=== PATIENT | male | born 1945 | race Caucasian/White ===

== ENCOUNTER 2016-11-18 11:43 | Inpatient (IN) | payer MEDICARE, OTHER ==
[~2016-11-18] VITALS: Ht 185.4 cm; Wt 88.5 kg
[~2016-11-18 11:43] MED LIST: ASPI81TA27 PO; ATOR20TA PO; CAR3125T PO; CLOP75TA41 PO; Doxycycline Monohydrate PO; ENA2.5T PO; FURO40TA PO; PANT40TA2 PO; POT10T PO
[2016-11-18] MEDS ORDERED: SODIUM CHLORIDE 0.9% 1,000 ML IV ONE (11:53)
[2016-11-18] MEDS ORDERED: IPRATROPIUM BROM 0.5 MG/2.5ML INH SOL NEB ONE (12:00)
[2016-11-18] MEDS ORDERED: ALBUTEROL SULF 2.5 MG/0.5ML(0.5%) NEB SOLN NEB ONE (12:00)
[2016-11-18] MEDS ORDERED: methylPREDNISolone SOD SUCC 125 MG/2 ML VL IV ONE (12:00)
[2016-11-18 12:49] LABS: Basophils # (auto) 0 uL; Basophils % (auto) 0.3 % (0.0-2.0); Eosinophils # (auto) 0 uL; Eosinophils % (auto) 0.3 % (0.0-7.0); Hematocrit 38.7 % (41.0-53.0); Lymphocytes # (auto) 1.2 uL; Lymphocytes % (auto) 13.1 % (10.0-50.0); Mean Corpuscular Hemoglobin 27.1 pg (28.0-32.0); Mean Corpuscular Volume 87.3 fL (80.0-100.0); Mean Platelet Volume 7.6 fL (7.4-10.4); Monocytes # (auto) 0.7 uL; Monocytes % (auto) 8.2 % (0.0-12.0); Neutrophils % (auto) 78.1 % (37.0-80.0); Platelet Count (auto) 381 10^3/uL (140-450); Red Cell Distribution Width 17.4 % (11.6-16.0); White Blood Cell 8.9 10^3/uL (4.4-10.8)
[2016-11-18 13:09] LABS: INR 1.44 (0.9-1.15); Prothrombin Time 14.8 sec (9.37-12.3)
[2016-11-18 13:13] LABS: Albumin 3.1 g/dL (3.4-5.0); BUN/Creatinine Ratio 25.4; Calcium 8.6 mg/dL (8.5-10.1); Magnesium 2.3 mg/dL (1.6-2.6); Potassium 4.7 mmol/L (3.5-5.1); Total Protein 6.7 g/dL (6.4-8.2)
[2016-11-18] MEDS ORDERED: ASPirin 81 mg TAB PO ONE (13:45)
[2016-11-18] MEDS ORDERED: ENOXAPARIN SOD 100 MG/1 ML SYRINGE SC ONE (13:45)
[2016-11-18 13:56] LABS: B-Type Natriuretic Peptide 4252.61 pg/mL (0-100); Temperature: 22.3 C (20.0-25.0)
[2016-11-18] MEDS ORDERED: FUROSEMIDE 100 MG/10ML VIAL IV ONE (14:30)
[2016-11-18] MEDS ORDERED: CLOPIDOGREL BISULFATE 75 MG TAB PO ONE (14:30)
[2016-11-18] MEDS ORDERED: CLOPIDOGREL 300 MG TAB PO ONE (14:45)
[2016-11-18] MEDS ORDERED: FUROSEMIDE INJECTION 10 ML ONE (16:41)
[2016-11-18] MEDS ORDERED: ACETAMINOPHEN 325 MG TAB PO PRN (17:45)
[2016-11-18] MEDS ORDERED: NITROGLYCERIN 0.4 MG SL TAB SL PRN ×2 (17:45)
[2016-11-18] MEDS ORDERED: MORPHINE SULF INJ 2 MG/ML SYRINGE 1ML IV PRN ×2 (17:45)
[2016-11-18] MEDS ORDERED: LORazepam 0.5 MG TAB PO PRN (17:45)
[2016-11-18] MEDS ORDERED: cefTRIAXone 1GM/50ML D5W 50 ML IV ONE (17:45)
[2016-11-18] MEDS ORDERED: ALUM & MAG HYDROX-SIMETH LIQ(MAALOX) 30 ML PO PRN (17:45)
[2016-11-18] MEDS ORDERED: ONDANSETRON HCL 4 MG/2 ML VIAL IV PRN (17:45)
[2016-11-18] MEDS ORDERED: ZOLPIDEM TARTRATE 5 MG TAB PO PRN (17:45)
[2016-11-18] MEDS: methylPREDNISolone SOD SUCC 125 MG/2 ML VL IV SCH (18:00)
[2016-11-18] MEDS: FUROSEMIDE 40 MG/4 ML VIAL IV SCH (18:00)
[2016-11-18] MEDS: IPRATROPIUM BROM 0.5 MG/2.5ML INH SOL NEB SCH (18:50)
[2016-11-18] MEDS: ALBUTEROL SULF 2.5 MG/0.5ML(0.5%) NEB SOLN NEB SCH (18:51)
[2016-11-18 21:50] VITALS: BP 115/79
[2016-11-18] MEDS ORDERED: POTASSIUM CHL 10 Meq TABLET PO SCH (22:00)
[2016-11-18] MEDS ORDERED: CARVEDILOL 3.125 MG TAB PO SCH (22:00)
[2016-11-18] MEDS ORDERED: ENALAPRIL MALEATE 2.5 MG TAB PO SCH (22:00)
[2016-11-18] MEDS ORDERED: ATORVASTATIN 20 MG TAB PO SCH (22:00)
[2016-11-18] MEDS: SODIUM CHLOR 0.9% PF (SALINE LOCK) 10ML VIAL IV SCH (22:03)
[2016-11-18 23:49] LABS: Urine Bilirubin Negative (Negative); Urine Blood Negative /uL (Negative); Urine Color Colorless (Yellow); Urine Glucose Normal (Normal); Urine Ketone Negative (Negative); Urine Nitrite Negative (Negative); Urine RBC <1 /hpf (0 - 3); Urine Urobilinogen Normal (Negative)
[2016-11-19] MEDS: methylPREDNISolone SOD SUCC 125 MG/2 ML VL IV SCH ×2 (00:18→06:18)
[2016-11-19] MEDS: ALBUTEROL SULF 2.5 MG/0.5ML(0.5%) NEB SOLN NEB SCH ×2 (00:19→06:21)
[2016-11-19] MEDS: IPRATROPIUM BROM 0.5 MG/2.5ML INH SOL NEB SCH ×2 (00:19→06:21)
[2016-11-19] MEDS: FUROSEMIDE 40 MG/4 ML VIAL IV SCH (06:18)
[2016-11-19] MEDS: SODIUM CHLOR 0.9% PF (SALINE LOCK) 10ML VIAL IV SCH (06:18)
[2016-11-19 06:38] LABS: Basophils # (auto) 0.1 uL; Basophils % (auto) 1.1 % (0.0-2.0); Eosinophils # (auto) 0 uL; Hematocrit 40.4 % (41.0-53.0); Hemoglobin 13.2 g/dL (13.5-17.5); Lymphocytes # (auto) 0.5 uL; Mean Corpuscular Hgb Conc. 32.7 g/dL (32.0-36.0); Mean Corpuscular Volume 85.6 fL (80.0-100.0); Mean Platelet Volume 7.4 fL (7.4-10.4); Monocytes # (auto) 0.1 uL; Monocytes % (auto) 1.6 % (0.0-12.0); Neutrophils # (auto) 5.7 uL; Neutrophils % (auto) 89.3 % (37.0-80.0); Platelet Count (auto) 375 10^3/uL (140-450); Red Cell Distribution Width 15.8 % (11.6-16.0); White Blood Cell 6.4 10^3/uL (4.4-10.8)
[2016-11-19 06:57] LABS: Albumin 3.2 g/dL (3.4-5.0); BUN/Creatinine Ratio 27.5; Bilirubin, Total 1.7 mg/dL (0.2-1.0); Calcium 8.8 mg/dL (8.5-10.1); Magnesium 2.1 mg/dL (1.6-2.6); Potassium 3.9 mmol/L (3.5-5.1); Total Protein 6.3 g/dL (6.4-8.2)
[2016-11-19 07:45] VITALS: BP 129/43
[2016-11-19] MEDS ORDERED: IPRATROPIUM BROM 0.5 MG/2.5ML INH SOL NEB ONE (08:00)
[2016-11-19] MEDS ORDERED: FUROSEMIDE 20 MG/2 ML VIAL IV ONE (08:00)
[2016-11-19] MEDS ORDERED: ALBUTEROL SULF 2.5 MG/0.5ML(0.5%) NEB SOLN NEB ONE (08:00)
[2016-11-19 08:51] LABS: B-Type Natriuretic Peptide 4208.66 pg/mL (0-100); Temperature: 21.6 C (20.0-25.0)
[2016-11-19] MEDS ORDERED: cefTRIAXone 1GM/50ML D5W 50 ML IV SCH (09:00)
[2016-11-19] MEDS ORDERED: DOCUSATE SOD 100 MG CAP PO SCH (10:00)
[2016-11-19] MEDS ORDERED: ASPirin 81 mg TAB PO SCH (10:00)
[2016-11-19] MEDS ORDERED: CLOPIDOGREL BISULFATE 75 MG TAB PO SCH (10:00)
[2016-11-19] MEDS ORDERED: ENOXAPARIN SOD 100 MG/1 ML SYRINGE SC SCH ×2 (13:40→14:00)
[2016-11-19] MEDS ORDERED: methylPREDNISolone SOD SUCC 125 MG/2 ML VL IV SCH (22:00)
== END 2016-11-19 09:26 | disposition left against medical advice (07) | DRG 280 ==
LOC: EDUNIT# 11:43 → ER 11:48 → EDSEX 11:48 → TELE 11:49
PROVIDERS: ADMIT Internal Medicine; ATTEND Internal Medicine
DX: I21.4 Non-ST elevation (NSTEMI) myocardial infarction (principal); I50.43 Acute on chronic combined systolic (congestive) and diastolic (congestive) heart failure; D68.9 Coagulation defect, unspecified; E44.0 Moderate protein-calorie malnutrition; I13.0 Hypertensive heart and chronic kidney disease with heart failure and stage 1 through stage 4 chronic kidney disease, or unspecified chronic kidney disease; J44.0 Chronic obstructive pulmonary disease with (acute) lower respiratory infection; J44.1 Chronic obstructive pulmonary disease with (acute) exacerbation; J45.901 Unspecified asthma with (acute) exacerbation; R65.10 Systemic inflammatory response syndrome (SIRS) of non-infectious origin without acute organ dysfunction; J20.9 Acute bronchitis, unspecified; D63.8 Anemia in other chronic diseases classified elsewhere; N18.3 Chronic kidney disease, stage 3 (moderate); E78.5 Hyperlipidemia, unspecified; F17.210 Nicotine dependence, cigarettes, uncomplicated; I25.10 Atherosclerotic heart disease of native coronary artery without angina pectoris; I25.2 Old myocardial infarction; Z98.61 Coronary angioplasty status; Z79.82 Long term (current) use of aspirin; Z79.899 Other long term (current) drug therapy; Z88.8 Allergy status to other drugs, medicaments and biological substances; Z80.9 Family history of malignant neoplasm, unspecified; Z68.25 Body mass index [BMI] 25.0-25.9, adult
CPT/HCPCS: 36415; 36600; 51702; 71010; 80053; 80061; 81001; 82805; 83735; 83880; 84484; 85025; 85610; 85730; 87040; 87086; 93005; 94640; 94761; 96361; 96365; 96372; 96375; 96376

== ENCOUNTER 2016-11-25 23:07 | Inpatient (IN) | payer MEDICARE, OTHER ==
[~2016-11-25] VITALS: Ht 185.4 cm; Wt 80.2 kg
[2016-11-25 23:54] LABS: Basophils # (auto) 0.2 uL; Basophils % (auto) 1.6 % (0.0-2.0); DEFINITIVE VIEW TRANSMISSION; Eosinophils # (auto) 0.1 uL; Eosinophils % (auto) 0.4 % (0.0-7.0); Hematocrit 41.3 % (41.0-53.0); Hemoglobin 12.7 g/dL (13.5-17.5); Lymphocytes # (auto) 1.2 uL; Lymphocytes % (auto) 9.1 % (10.0-50.0); Mean Corpuscular Hemoglobin 27.1 pg (28.0-32.0); Mean Corpuscular Hgb Conc. 30.8 g/dL (32.0-36.0); Mean Platelet Volume 7.7 fL (7.4-10.4); Monocytes # (auto) 0.7 uL; Monocytes % (auto) 5.8 % (0.0-12.0); Neutrophils # (auto) 10.7 uL; Neutrophils % (auto) 83.1 % (37.0-80.0); Platelet Count (auto) 354 10^3/uL (140-450); Red Cell Distribution Width 15.9 % (11.6-16.0); SUSPECT VIEW TRANSMISSION; White Blood Cell 12.9 10^3/uL (4.4-10.8)
[2016-11-26 00:14] LABS: BUN/Creatinine Ratio 26.5; Calcium 8.2 mg/dL (8.5-10.1)
[2016-11-26] MEDS ORDERED: PROMETHAZINE HCL 25 MG/ML 1ML IV ONE (00:15)
[2016-11-26] MEDS ORDERED: HYDROmorphone HCL 2 MG/ML VL IV ONE (00:15)
[2016-11-26 00:16] LABS: Bilirubin, Total 1.8 mg/dL (0.2-1.0); Total Protein 6.2 g/dL (6.4-8.2)
[2016-11-26 00:18] LABS: Partial Thromboplastin Time 26.9 sec (22.64-33.71)
[2016-11-26 00:26] LABS: B-Type Natriuretic Peptide > 5000.00 pg/mL (0-100); INR 1.43 (0.9-1.15); Prothrombin Time 14.7 sec (9.37-12.3)
[2016-11-26] MEDS ORDERED: cefTRIAXone 1GM/50ML D5W 50 ML IV ONE (05:30)
[2016-11-26] MEDS ORDERED: VANCOMYCIN 1GM/250ML D5W 250 ML IV ONE (05:30)
[2016-11-26] MEDS ORDERED: NITROGLYCERIN 0.4 MG SL TAB SL PRN (09:15)
[2016-11-26] MEDS ORDERED: FUROSEMIDE 40 MG/4 ML VIAL IV ONE ×2 (09:15→18:30)
[2016-11-26] MEDS ORDERED: VANCOMYCIN PER PHARMACY 0 MG IV SCH (09:15)
[2016-11-26] MEDS ORDERED: ACETAMINOPHEN 325 MG TAB PO PRN (09:15)
[2016-11-26] MEDS: CLOPIDOGREL BISULFATE 75 MG TAB PO SCH (09:54)
[2016-11-26] MEDS: MULTIPLE VITAMIN TAB PO SCH (09:54)
[2016-11-26] MEDS: CARVEDILOL 3.125 MG TAB PO SCH ×2 (09:54→22:00)
[2016-11-26] MEDS: PANTOPRAZOLE 40 MG TAB PO SCH (09:54)
[2016-11-26] MEDS: ENALAPRIL MALEATE 2.5 MG TAB PO SCH (09:54)
[2016-11-26] MEDS: POTASSIUM CHL 10 Meq TABLET PO SCH ×2 (09:54→22:00)
[2016-11-26] MEDS: ENOXAPARIN SOD 40 MG/0.4 ML SYRINGE SC SCH (09:54)
[2016-11-26] MEDS: ASPirin-EC 81 mg tab PO SCH (09:54)
[2016-11-26] MEDS ORDERED: FAMOTIDINE 20 MG TAB PO SCH (10:00)
[2016-11-26] MEDS: MORPHINE SULF INJ 2 MG/ML SYRINGE 1ML IV PRN ×2 (10:01→23:59)
[2016-11-26] MEDS: SODIUM CHLOR 0.9% PF (SALINE LOCK) 10ML VIAL IV SCH ×2 (12:13→22:00)
[2016-11-26 12:36] LABS: Urine Bilirubin Negative (Negative); Urine Blood Negative /uL (Negative); Urine Color Yellow (Yellow); Urine Glucose Normal (Normal); Urine Ketone Negative (Negative); Urine Nitrite Negative (Negative); Urine RBC 2 /hpf (0 - 3); Urine pH 5.5 (5.0-8.0)
[2016-11-26] MEDS: VANCOMYCIN 1GM/250ML D5W 250 ML IV SCH (17:27)
[2016-11-26] MEDS: FUROSEMIDE 40 MG/4 ML VIAL IV SCH (17:54)
[2016-11-26] MEDS ORDERED: VANCOMYCIN 1GM/250ML D5W 250 ML IV SCH (18:00)
[2016-11-26] MEDS: ATORVASTATIN 20 MG TAB PO SCH (22:00)
[2016-11-26] MEDS: ONDANSETRON HCL 4 MG/2 ML VIAL IV PRN (23:59)
[2016-11-27] MEDS: MORPHINE SULF INJ 2 MG/ML SYRINGE 1ML IV PRN ×4 (01:13→17:46)
[2016-11-27] MEDS: HYDROcodone-ACET 5/325MG TAB PO PRN ×2 (03:12→23:37)
[2016-11-27] MEDS: VANCOMYCIN 1GM/250ML D5W 250 ML IV SCH (05:57)
[2016-11-27 06:00] LABS: Basophils # (auto) 0.1 uL; Basophils % (auto) 0.6 % (0.0-2.0); Eosinophils # (auto) 0.1 uL; Eosinophils % (auto) 0.9 % (0.0-7.0); Hematocrit 39.5 % (41.0-53.0); Hemoglobin 12.5 g/dL (13.5-17.5); Lymphocytes # (auto) 1.1 uL; Lymphocytes % (auto) 8.9 % (10.0-50.0); Mean Corpuscular Hemoglobin 27.4 pg (28.0-32.0); Mean Corpuscular Hgb Conc. 31.5 g/dL (32.0-36.0); Mean Corpuscular Volume 86.9 fL (80.0-100.0); Mean Platelet Volume 7.7 fL (7.4-10.4); Monocytes # (auto) 1.4 uL; Monocytes % (auto) 11.7 % (0.0-12.0); Neutrophils # (auto) 9.2 uL; Neutrophils % (auto) 77.9 % (37.0-80.0); Platelet Count (auto) 328 10^3/uL (140-450); Red Cell Distribution Width 16.7 % (11.6-16.0); SUSPECT VIEW TRANSMISSION; White Blood Cell 11.9 10^3/uL (4.4-10.8)
[2016-11-27] MEDS: FUROSEMIDE 40 MG/4 ML VIAL IV SCH (06:00)
[2016-11-27] MEDS: SODIUM CHLOR 0.9% PF (SALINE LOCK) 10ML VIAL IV SCH ×3 (06:29→22:13)
[2016-11-27 06:40] LABS: Potassium 4.3 mmol/L (3.5-5.1)
[2016-11-27 06:51] LABS: Albumin 2.5 g/dL (3.4-5.0); BUN/Creatinine Ratio 23.7; Calcium 8.1 mg/dL (8.5-10.1)
[2016-11-27 07:03] LABS: Total Protein 5.5 g/dL (6.4-8.2)
[2016-11-27] MEDS: cefTRIAXone 1GM/50ML D5W 50 ML IV SCH (09:34)
[2016-11-27] MEDS: CARVEDILOL 3.125 MG TAB PO SCH ×2 (10:00→22:14)
[2016-11-27] MEDS: ENALAPRIL MALEATE 2.5 MG TAB PO SCH (10:00)
[2016-11-27] MEDS: ASPirin-EC 81 mg tab PO SCH (10:43)
[2016-11-27] MEDS: MULTIPLE VITAMIN TAB PO SCH (10:44)
[2016-11-27] MEDS: POTASSIUM CHL 10 Meq TABLET PO SCH ×2 (10:44→22:13)
[2016-11-27] MEDS: CLOPIDOGREL BISULFATE 75 MG TAB PO SCH (10:45)
[2016-11-27] MEDS: ENOXAPARIN SOD 40 MG/0.4 ML SYRINGE SC SCH (10:45)
[2016-11-27] MEDS: PANTOPRAZOLE 40 MG TAB PO SCH (10:45)
[2016-11-27] MEDS: ONDANSETRON HCL 4 MG/2 ML VIAL IV PRN (11:15)
[2016-11-27] MEDS ORDERED: LORazepam 2MG/ML-1ML VIAL ONE (15:11)
[2016-11-27] MEDS: FUROSEMIDE 40 MG TAB PO SCH (17:50)
[2016-11-27] MEDS: ATORVASTATIN 20 MG TAB PO SCH (22:13)
[2016-11-27 23:15] VITALS: BP 94/65
[2016-11-27] MEDS: DOCUSATE SOD 100 MG CAP PO PRN (23:36)
[2016-11-28] VITALS (89 sets, daily range): BP systolic 77–157; BP diastolic 34–102
[2016-11-28] MEDS ORDERED: NOREPINEPHRINE BITARTRATE 250 ML IV ONE (00:20)
[2016-11-28] MEDS ORDERED: NOREPINEPHRINE BITARTRATE 2 ML IV ONE (00:21)
[2016-11-28] MEDS: NOREPINEPHRINE BITARTRATE 16 MG in D5W 5% 250 ML IV SCH (01:20)
[2016-11-28] MEDS ORDERED: NITR0.4S29 SL (04:35)
[2016-11-28] MEDS ORDERED: FURO40TA4 PO (04:35)
[2016-11-28] MEDS ORDERED: POTA10TA34 PO (04:35)
[2016-11-28] MEDS ORDERED: TAMS0.4C36 PO (04:35)
[2016-11-28 05:07] LABS: Basophils # (auto) 0 uL; Basophils % (auto) 0.3 % (0.0-2.0); Eosinophils # (auto) 0.1 uL; Eosinophils % (auto) 1.1 % (0.0-7.0); Hematocrit 37.2 % (41.0-53.0); Hemoglobin 11.7 g/dL (13.5-17.5); Lymphocytes # (auto) 1.1 uL; Lymphocytes % (auto) 11.6 % (10.0-50.0); Mean Corpuscular Hemoglobin 27.1 pg (28.0-32.0); Mean Corpuscular Hgb Conc. 31.4 g/dL (32.0-36.0); Mean Corpuscular Volume 86.6 fL (80.0-100.0); Mean Platelet Volume 7.3 fL (7.4-10.4); Monocytes # (auto) 0.9 uL; Monocytes % (auto) 9.7 % (0.0-12.0); Neutrophils # (auto) 7.1 uL; Neutrophils % (auto) 77.3 % (37.0-80.0); Platelet Count (auto) 321 10^3/uL (140-450); Red Cell Distribution Width 17.9 % (11.6-16.0); White Blood Cell 9.2 10^3/uL (4.4-10.8)
[2016-11-28 05:37] LABS: BUN/Creatinine Ratio 23.1; Calcium 7.8 mg/dL (8.5-10.1); Magnesium 1.8 mg/dL (1.6-2.6); Potassium 4.3 mmol/L (3.5-5.1)
[2016-11-28] MEDS ORDERED: VANCOMYCIN 1GM/250ML D5W 250 ML IV SCH (06:00)
[2016-11-28] MEDS: FUROSEMIDE 40 MG TAB PO SCH ×2 (06:01→17:14)
[2016-11-28] MEDS: SODIUM CHLOR 0.9% PF (SALINE LOCK) 10ML VIAL IV SCH ×3 (06:01→22:14)
[2016-11-28] MEDS: cefTRIAXone 1GM/50ML D5W 50 ML IV SCH (09:00)
[2016-11-28] MEDS: ENOXAPARIN SOD 80 MG/0.8ML SYRINGE SC SCH ×2 (09:44→22:14)
[2016-11-28] MEDS: CLOPIDOGREL BISULFATE 75 MG TAB PO SCH (09:44)
[2016-11-28] MEDS: MULTIPLE VITAMIN TAB PO SCH (09:44)
[2016-11-28] MEDS: POTASSIUM CHL 10 Meq TABLET PO SCH ×2 (09:45→22:14)
[2016-11-28] MEDS: ENALAPRIL MALEATE 2.5 MG TAB PO SCH (09:45)
[2016-11-28] MEDS: ASPirin-EC 81 mg tab PO SCH (09:45)
[2016-11-28] MEDS: CARVEDILOL 3.125 MG TAB PO SCH ×3 (09:45→23:15)
[2016-11-28] MEDS: PANTOPRAZOLE 40 MG TAB PO SCH (09:45)
[2016-11-28] MEDS ORDERED: ENOXAPARIN SOD 40 MG/0.4 ML SYRINGE SC SCH (10:00)
[2016-11-28 11:01] LABS: Urine Bilirubin Negative (Negative); Urine Color Colorless (Yellow); Urine Glucose Normal (Normal); Urine Ketone Negative (Negative); Urine Nitrite Negative (Negative); Urine RBC 17 /hpf (0 - 3); Urine Urobilinogen Normal (Negative)
[2016-11-28 11:02] LABS: Urine Blood 1+ /uL (Negative)
[2016-11-28] MEDS: HYDROcodone-ACET 5/325MG TAB PO PRN (20:18)
[2016-11-28] MEDS: TEMAZEPAM 15 MG CAP PO PRN (22:14)
[2016-11-28] MEDS: ATORVASTATIN 20 MG TAB PO SCH (22:15)
[2016-11-29] VITALS (16 sets, daily range): BP systolic 96–168; BP diastolic 38–96
[2016-11-29] MEDS: NOREPINEPHRINE BITARTRATE 16 MG in D5W 5% 250 ML IV SCH (00:30)
[2016-11-29 03:48] LABS: Basophils # (auto) 0 uL; Basophils % (auto) 0.6 % (0.0-2.0); Eosinophils # (auto) 0.1 uL; Eosinophils % (auto) 1.4 % (0.0-7.0); Hematocrit 38.3 % (41.0-53.0); Hemoglobin 12.1 g/dL (13.5-17.5); Lymphocytes # (auto) 1.2 uL; Lymphocytes % (auto) 13.3 % (10.0-50.0); Mean Corpuscular Hemoglobin 27.2 pg (28.0-32.0); Mean Corpuscular Hgb Conc. 31.5 g/dL (32.0-36.0); Mean Corpuscular Volume 86.3 fL (80.0-100.0); Mean Platelet Volume 7.4 fL (7.4-10.4); Neutrophils # (auto) 6.4 uL; Neutrophils % (auto) 73.7 % (37.0-80.0); Platelet Count (auto) 294 10^3/uL (140-450); Red Cell Distribution Width 17.6 % (11.6-16.0); White Blood Cell 8.7 10^3/uL (4.4-10.8)
[2016-11-29 04:15] LABS: BUN/Creatinine Ratio 24.3; Calcium 8.4 mg/dL (8.5-10.1); Magnesium 1.8 mg/dL (1.6-2.6); Potassium 3.9 mmol/L (3.5-5.1); Uric Acid 9.7 mg/dL (3.5-7.2)
[2016-11-29] MEDS: FUROSEMIDE 40 MG TAB PO SCH ×2 (05:53→17:50)
[2016-11-29] MEDS: HYDROcodone-ACET 5/325MG TAB PO PRN ×4 (05:54→18:47)
[2016-11-29] MEDS: SODIUM CHLOR 0.9% PF (SALINE LOCK) 10ML VIAL IV SCH ×3 (06:00→21:23)
[2016-11-29] MEDS: cefTRIAXone 1GM/50ML D5W 50 ML IV SCH (09:26)
[2016-11-29 09:45] LABS: Partial Thromboplastin Time 31.5 sec (22.64-33.71)
[2016-11-29] MEDS: ENALAPRIL MALEATE 2.5 MG TAB PO SCH (10:00)
[2016-11-29 10:04] LABS: INR 1.17 (0.9-1.15)
[2016-11-29] MEDS: ENOXAPARIN SOD 80 MG/0.8ML SYRINGE SC SCH (10:07)
[2016-11-29] MEDS: MULTIPLE VITAMIN TAB PO SCH (10:07)
[2016-11-29] MEDS: ASPirin-EC 81 mg tab PO SCH (10:07)
[2016-11-29] MEDS: PANTOPRAZOLE 40 MG TAB PO SCH (10:07)
[2016-11-29] MEDS: CLOPIDOGREL BISULFATE 75 MG TAB PO SCH (10:07)
[2016-11-29] MEDS: POTASSIUM CHL 10 Meq TABLET PO SCH ×2 (10:07→21:24)
[2016-11-29] MEDS ORDERED: MAGNESIUM SULFATE 1GM/100ML 100 ML IV ONE (11:30)
[2016-11-29] MEDS: MORPHINE SULF INJ 2 MG/ML SYRINGE 1ML IV PRN (21:23)
[2016-11-29] MEDS: CARVEDILOL 3.125 MG TAB PO SCH (21:24)
[2016-11-29] MEDS: ATORVASTATIN 20 MG TAB PO SCH (21:24)
[2016-11-30 05:00] VITALS: BP 98/54
[2016-11-30 06:01] LABS: Potassium 3.9 mmol/L (3.5-5.1)
[2016-11-30 06:06] LABS: Calcium 8.2 mg/dL (8.5-10.1); Magnesium 1.9 mg/dL (1.6-2.6)
[2016-11-30] MEDS: FUROSEMIDE 40 MG TAB PO SCH ×2 (06:20→17:18)
[2016-11-30] MEDS: SODIUM CHLOR 0.9% PF (SALINE LOCK) 10ML VIAL IV SCH ×3 (06:20→21:57)
[2016-11-30] MEDS: cefTRIAXone 1GM/50ML D5W 50 ML IV SCH (08:51)
[2016-11-30 09:00] VITALS: BP 103/65
[2016-11-30] MEDS: HYDROcodone-ACET 5/325MG TAB PO PRN ×2 (09:19→18:37)
[2016-11-30] MEDS: PANTOPRAZOLE 40 MG TAB PO SCH (10:55)
[2016-11-30] MEDS: ENALAPRIL MALEATE 2.5 MG TAB PO SCH (10:55)
[2016-11-30] MEDS: MULTIPLE VITAMIN TAB PO SCH (10:56)
[2016-11-30] MEDS: CARVEDILOL 3.125 MG TAB PO SCH ×2 (10:57→21:57)
[2016-11-30] MEDS: POTASSIUM CHL 10 Meq TABLET PO SCH ×2 (10:57→21:56)
[2016-11-30 13:05] VITALS: BP 95/68
[2016-11-30 17:00] VITALS: BP 96/71
[2016-11-30 20:32] VITALS: BP 94/57
[2016-11-30] MEDS: ATORVASTATIN 20 MG TAB PO SCH (21:56)
[2016-11-30] MEDS: TEMAZEPAM 15 MG CAP PO PRN (23:10)
[2016-12-01] MEDS: HYDROcodone-ACET 5/325MG TAB PO PRN (03:10)
[2016-12-01 04:35] VITALS: BP 127/67
[2016-12-01] MEDS: SODIUM CHLOR 0.9% PF (SALINE LOCK) 10ML VIAL IV SCH ×3 (05:28→21:30)
[2016-12-01] MEDS: FUROSEMIDE 40 MG TAB PO SCH ×2 (05:28→17:41)
[2016-12-01 05:48] LABS: Basophils # (auto) 0 uL; Basophils % (auto) 0.4 % (0.0-2.0); DEFINITIVE VIEW TRANSMISSION; Eosinophils # (auto) 0.1 uL; Eosinophils % (auto) 1.8 % (0.0-7.0); Hemoglobin 12.5 g/dL (13.5-17.5); Lymphocytes % (auto) 13.4 % (10.0-50.0); Mean Corpuscular Hemoglobin 26.9 pg (28.0-32.0); Mean Corpuscular Hgb Conc. 31.2 g/dL (32.0-36.0); Mean Corpuscular Volume 86.1 fL (80.0-100.0); Mean Platelet Volume 7.4 fL (7.4-10.4); Monocytes % (auto) 12.2 % (0.0-12.0); Neutrophils # (auto) 5.6 uL; Neutrophils % (auto) 72.2 % (37.0-80.0); Platelet Count (auto) 253 10^3/uL (140-450); Red Cell Distribution Width 17.3 % (11.6-16.0); White Blood Cell 7.8 10^3/uL (4.4-10.8)
[2016-12-01 05:58] LABS: INR 1.11 (0.9-1.15); Prothrombin Time 11.4 sec (9.37-12.3)
[2016-12-01 06:01] LABS: BUN/Creatinine Ratio 24.8; Calcium 8.5 mg/dL (8.5-10.1); Potassium 3.8 mmol/L (3.5-5.1)
[2016-12-01] MEDS: cefTRIAXone 1GM/50ML D5W 50 ML IV SCH (08:57)
[2016-12-01 09:11] VITALS: BP 101/58
[2016-12-01] MEDS: POTASSIUM CHL 10 Meq TABLET PO SCH ×2 (09:34→21:30)
[2016-12-01] MEDS: CARVEDILOL 3.125 MG TAB PO SCH ×2 (09:34→22:00)
[2016-12-01] MEDS: ENALAPRIL MALEATE 2.5 MG TAB PO SCH (09:34)
[2016-12-01] MEDS: MULTIPLE VITAMIN TAB PO SCH (09:34)
[2016-12-01] MEDS: PANTOPRAZOLE 40 MG TAB PO SCH (09:35)
[2016-12-01] MEDS: DOCUSATE SOD 100 MG CAP PO PRN (09:35)
[2016-12-01 13:00] VITALS: BP 110/57
[2016-12-01 17:00] VITALS: BP 86/57
[2016-12-01] MEDS: TEMAZEPAM 15 MG CAP PO PRN (21:30)
[2016-12-01] MEDS: ATORVASTATIN 20 MG TAB PO SCH (21:30)
[2016-12-01 22:00] VITALS: BP 88/56
[2016-12-01] MEDS: ACETYLCYSTEINE ORAL for CIN 20%(200MG/ML) 4ML PO SCH (22:48)
[2016-12-02] MEDS: HYDROcodone-ACET 5/325MG TAB PO PRN (03:58)
[2016-12-02 05:00] VITALS: BP 118/93
[2016-12-02] MEDS: SODIUM CHLOR 0.9% PF (SALINE LOCK) 10ML VIAL IV SCH ×3 (05:35→21:52)
[2016-12-02] MEDS: FUROSEMIDE 40 MG TAB PO SCH ×2 (05:36→17:43)
[2016-12-02 06:02] LABS: Basophils # (auto) 0.1 uL; Basophils % (auto) 0.6 % (0.0-2.0); Eosinophils # (auto) 0.2 uL; Eosinophils % (auto) 1.9 % (0.0-7.0); Lymphocytes # (auto) 1.8 uL; Lymphocytes % (auto) 18.7 % (10.0-50.0); Mean Corpuscular Hemoglobin 27.2 pg (28.0-32.0); Mean Corpuscular Hgb Conc. 31.8 g/dL (32.0-36.0); Mean Corpuscular Volume 85.7 fL (80.0-100.0); Mean Platelet Volume 7.5 fL (7.4-10.4); Monocytes # (auto) 1.1 uL; Monocytes % (auto) 11.9 % (0.0-12.0); Neutrophils # (auto) 6.4 uL; Neutrophils % (auto) 66.9 % (37.0-80.0); Platelet Count (auto) 278 10^3/uL (140-450); Red Cell Distribution Width 17.7 % (11.6-16.0); White Blood Cell 9.6 10^3/uL (4.4-10.8)
[2016-12-02 06:12] LABS: BUN/Creatinine Ratio 24.1; Calcium 8.2 mg/dL (8.5-10.1); INR 1.08 (0.9-1.15); Magnesium 2.3 mg/dL (1.6-2.6); Potassium 4.4 mmol/L (3.5-5.1); Prothrombin Time 11.1 sec (9.37-12.3)
[2016-12-02] MEDS ORDERED: IOHEXOL 350 MG/ML 100ML IJ ONE (07:23)
[2016-12-02] MEDS ORDERED: LIDOCAINE 2%HCL (LOCAL ANESTH.) INJ 20ML MDV ONE (07:23)
[2016-12-02 08:00] VITALS: BP 103/64
[2016-12-02] MEDS: ENALAPRIL MALEATE 2.5 MG TAB PO SCH (09:15)
[2016-12-02] MEDS: CARVEDILOL 3.125 MG TAB PO SCH ×2 (09:15→22:00)
[2016-12-02] MEDS: cefTRIAXone 1GM/50ML D5W 50 ML IV SCH (09:51)
[2016-12-02] MEDS: MULTIPLE VITAMIN TAB PO SCH (09:51)
[2016-12-02] MEDS: POTASSIUM CHL 10 Meq TABLET PO SCH ×2 (09:52→21:50)
[2016-12-02] MEDS: PANTOPRAZOLE 40 MG TAB PO SCH (09:52)
[2016-12-02] MEDS: ACETYLCYSTEINE ORAL for CIN 20%(200MG/ML) 4ML PO SCH ×2 (10:15→21:50)
[2016-12-02] MEDS ORDERED: VANCOMYCIN HCL 1000 MG VL ONE (10:58)
[2016-12-02] MEDS ORDERED: VANCOMYCIN 1GM/250ML D5W 250 ML IV ONE ×2 (10:58→11:00)
[2016-12-02] MEDS ORDERED: VANCOMYCIN HCL 1000 MG VL IR ONE (11:00)
[2016-12-02] MEDS ORDERED: fentaNYL CITRATE 100 MCG/2 ML VL ONE (11:13)
[2016-12-02] MEDS ORDERED: MIDAZOLAM HCL 1MG/1ML-2 ML VIAL ONE (11:13)
[2016-12-02] MEDS ORDERED: BACITRACIN INJ 50000 UNIT VIAL ONE (11:13)
[2016-12-02 14:40] VITALS: BP 109/73
[2016-12-02] MEDS: MORPHINE SULF INJ 2 MG/ML SYRINGE 1ML IV PRN ×2 (15:40→20:52)
[2016-12-02] MEDS: ONDANSETRON HCL 4 MG/2 ML VIAL IV PRN (15:40)
[2016-12-02] MEDS: DOXYCYCLINE 100 MG TAB/CAP PO SCH ×2 (15:41→21:50)
[2016-12-02 16:30] VITALS: BP 136/52
[2016-12-02] MEDS: ceFAZolin 1GM 2 GM in D5W 5% 100 ML IV SCH (16:55)
[2016-12-02] MEDS: ATORVASTATIN 20 MG TAB PO SCH (21:51)
[2016-12-02] MEDS ORDERED: VANCOMYCIN 1GM/250ML D5W 250 ML IV SCH (23:00)
[2016-12-02 23:14] VITALS: BP 90/60
[2016-12-02] MEDS ORDERED: ceFAZolin 1GM/50ML D5W 0 ML IV ONE (23:59)
[2016-12-03] MEDS ORDERED: ceFAZolin 1GM/50ML D5W 100 ML IV ONE (00:06)
[2016-12-03] MEDS: ceFAZolin 1GM 2 GM in D5W 5% 100 ML IV SCH (00:13)
[2016-12-03] MEDS: MORPHINE SULF INJ 2 MG/ML SYRINGE 1ML IV PRN ×2 (01:06→05:10)
[2016-12-03 05:06] VITALS: BP 84/59
[2016-12-03] MEDS: SODIUM CHLOR 0.9% PF (SALINE LOCK) 10ML VIAL IV SCH ×2 (05:49→14:17)
[2016-12-03 05:56] LABS: Basophils # (auto) 0.1 uL; Basophils % (auto) 0.6 % (0.0-2.0); DEFINITIVE VIEW TRANSMISSION; Eosinophils # (auto) 0.2 uL; Eosinophils % (auto) 2.3 % (0.0-7.0); Hematocrit 37.7 % (41.0-53.0); Hemoglobin 11.8 g/dL (13.5-17.5); Lymphocytes # (auto) 1.9 uL; Lymphocytes % (auto) 23.1 % (10.0-50.0); Mean Corpuscular Hemoglobin 26.8 pg (28.0-32.0); Mean Corpuscular Hgb Conc. 31.1 g/dL (32.0-36.0); Mean Corpuscular Volume 86.1 fL (80.0-100.0); Mean Platelet Volume 7.6 fL (7.4-10.4); Monocytes # (auto) 0.9 uL; Monocytes % (auto) 10.4 % (0.0-12.0); Neutrophils # (auto) 5.3 uL; Neutrophils % (auto) 63.6 % (37.0-80.0); Platelet Count (auto) 246 10^3/uL (140-450); Red Cell Distribution Width 17.7 % (11.6-16.0); White Blood Cell 8.4 10^3/uL (4.4-10.8)
[2016-12-03] MEDS: FUROSEMIDE 40 MG TAB PO SCH ×2 (05:58→17:31)
[2016-12-03 06:14] LABS: BUN/Creatinine Ratio 25.2; Calcium 8.1 mg/dL (8.5-10.1); Potassium 4.2 mmol/L (3.5-5.1)
[2016-12-03 09:00] VITALS: BP 99/56
[2016-12-03] MEDS: CARVEDILOL 3.125 MG TAB PO SCH (10:00)
[2016-12-03] MEDS: ENALAPRIL MALEATE 2.5 MG TAB PO SCH (10:00)
[2016-12-03] MEDS: DOXYCYCLINE 100 MG TAB/CAP PO SCH (10:09)
[2016-12-03] MEDS: POTASSIUM CHL 10 Meq TABLET PO SCH (10:09)
[2016-12-03] MEDS: MULTIPLE VITAMIN TAB PO SCH (10:09)
[2016-12-03] MEDS: PANTOPRAZOLE 40 MG TAB PO SCH (10:10)
[2016-12-03] MEDS: ACETYLCYSTEINE ORAL for CIN 20%(200MG/ML) 4ML PO SCH (10:11)
[2016-12-03] MEDS: HYDROcodone-ACET 5/325MG TAB PO PRN (10:24)
[2016-12-03 12:00] VITALS: BP 88/49
[2016-12-03] MEDS ORDERED: HYDROcodone-ACET 5/325MG TAB PO PRN (13:45)
[2016-12-03] MEDS ORDERED: TEMAZEPAM 15 MG CAP PO PRN (13:45)
[2016-12-03 16:00] VITALS: BP 87/54
== END 2016-12-03 18:20 | disposition left against medical advice (07) | DRG 853 ==
LOC: EDBD 23:07 → ER 23:11 → TELE 23:12 → DOU IN ICU 11-27 23:09 → ICU WEST 11-28 06:13 → TELE-WESTW 11-29 12:37
PROVIDERS: ADMIT Internal Medicine; ATTEND Internal Medicine
PROC: 0JH608Z Insertion of Defibrillator Generator into Chest Subcutaneous Tissue and Fascia, Open Approach (ICD-10-PCS; principal; 2016-12-02)
PROC: 0JH60PZ Insertion of Cardiac Rhythm Related Device into Chest Subcutaneous Tissue and Fascia, Open Approach (ICD-10-PCS; 2016-12-02)
PROC: 3E0102A Introduction of Anti-Infective Envelope into Subcutaneous Tissue, Open Approach (ICD-10-PCS; 2016-12-02)
PROC: B5171ZZ Fluoroscopy of Left Subclavian Vein using Low Osmolar Contrast (ICD-10-PCS; 2016-12-02)
DX: A41.9 Sepsis, unspecified organism (principal); I50.33 Acute on chronic diastolic (congestive) heart failure; N17.0 Acute kidney failure with tubular necrosis; I21.4 Non-ST elevation (NSTEMI) myocardial infarction; L03.116 Cellulitis of left lower limb; I13.0 Hypertensive heart and chronic kidney disease with heart failure and stage 1 through stage 4 chronic kidney disease, or unspecified chronic kidney disease; D68.9 Coagulation defect, unspecified; E44.0 Moderate protein-calorie malnutrition; L03.115 Cellulitis of right lower limb; J96.11 Chronic respiratory failure with hypoxia; R57.9 Shock, unspecified; R65.10 Systemic inflammatory response syndrome (SIRS) of non-infectious origin without acute organ dysfunction; N18.3 Chronic kidney disease, stage 3 (moderate); D63.8 Anemia in other chronic diseases classified elsewhere; I25.5 Ischemic cardiomyopathy; I73.9 Peripheral vascular disease, unspecified; J44.9 Chronic obstructive pulmonary disease, unspecified; F17.210 Nicotine dependence, cigarettes, uncomplicated; E78.5 Hyperlipidemia, unspecified; I25.10 Atherosclerotic heart disease of native coronary artery without angina pectoris; K21.9 Gastro-esophageal reflux disease without esophagitis; N05.9 Unspecified nephritic syndrome with unspecified morphologic changes; Z82.49 Family history of ischemic heart disease and other diseases of the circulatory system; Z95.810 Presence of automatic (implantable) cardiac defibrillator; Z99.81 Dependence on supplemental oxygen; Z95.5 Presence of coronary angioplasty implant and graft; Z88.6 Allergy status to analgesic agent; Z79.82 Long term (current) use of aspirin; Z79.899 Other long term (current) drug therapy; Z85.9 Personal history of malignant neoplasm, unspecified; Z68.23 Body mass index [BMI] 23.0-23.9, adult
CPT/HCPCS: 33249; 36415; 71010; 76775; 78582; 80048; 80053; 80061; 80202; 81001; 82306; 82570; 83735; 83880; 84100; 84156; 84300; 84443; 84484; 84550; 85025; 85049; 85379; 85610; 85730; 87040; 87081; 93005; 93923; 93970; 96365; 96367; 96375; 97110; 97116; 97530; 99152; J0690; J0696; J2250; J2405; J3490; J7060

== ENCOUNTER 2017-06-09 02:57 | Inpatient (IN) | payer MEDICARE, OTHER ==
[~2017-06-09] VITALS: Ht 185.4 cm; Wt 87.0 kg
[~2017-06-09 02:57] MED LIST changes: +ALBU18; +ALBUAER3 IN; +CARV3.1240; -Doxycycline Monohydrate PO; +FLUT110A; +HYDROCODON ACETAMINOPH; +NITR0.4S29 SL; +PANT40T; -POT10T PO; +POTA-167 PO; +POTA20TA53; +TAMS0.4C36 PO
[2017-06-09 03:35] LABS: Allen Test Modified; Base Excess -4.7 mmol/L (-2.0-2.0); Blood 02Sat 98.6 % (96-100); Blood COHb 1.9 % (0.5-1.5); Blood MetHb 0.5 % (0.0-1.5); HHb 1.4 % (0.0-5.0); MODE MASK - BIPAP; O2Hb 96.2 % (94.0-97.0); PCO2 36.1 mmHg (35.0-45.0); PCO2(T) 36.1 mmHg (35.0-45.0); PO2 164.5 mmHg (80.0-100.0); PO2(T) 164.5 mmHg (80.0-100.0); Sample Type Arterial; pH 7.362 (7.350-7.450)
[2017-06-09 03:51] LABS: Basophils # (auto) 0.1 uL; Basophils % (auto) 0.7 % (0.0-2.0); CONDITION Y; DEFINITIVE SEE PRINTOUT; Eosinophils # (auto) 0 uL; Eosinophils % (auto) 0.1 % (0.0-7.0); Hemoglobin 13.3 g/dL (13.5-17.5); Lymphocytes # (auto) 1.3 uL; Mean Corpuscular Hemoglobin 26.1 pg (28.0-32.0); Monocytes # (auto) 0.7 uL; SUSPECT SEE PRINTOUT; White Blood Cell 8.3 10^3/uL (4.4-10.8)
[2017-06-09 03:53] LABS: Urine RBC None Seen /hpf (0 - 3)
[2017-06-09 03:57] LABS: Hematocrit 41.7 % (41.0-53.0); Lymphocytes % (auto) 16.2 % (10.0-50.0); Mean Corpuscular Hgb Conc. 31.8 g/dL (32.0-36.0); Mean Platelet Volume 8.3 fL (7.4-10.4); Monocytes % (auto) 8.6 % (0.0-12.0); Neutrophils # (auto) 6.2 uL; Neutrophils % (auto) 74.4 % (37.0-80.0); Platelet Count (auto) 235 10^3/uL (140-450)
[2017-06-09 04:01] LABS: Red Cell Distribution Width 20.2 % (11.6-16.0)
[2017-06-09 04:04] LABS: Urine Bilirubin Negative (Negative); Urine Blood Negative /uL (Negative); Urine Color Yellow (Yellow); Urine Glucose Normal (Normal); Urine Hyaline Cast FEW /lpf (0 - 2); Urine Ketone Negative (Negative); Urine Nitrite Negative (Negative); Urine Squamous Epithelial Cell FEW /hpf (<5); Urine Urobilinogen Normal (Negative); Urine pH 5.5 (5.0-8.0)
[2017-06-09 04:17] LABS: Anisocytosis Slight; Hypochromia Slight; Large Platelets FEW; Ovalocytes FEW; Platelet Estimate Adequate
[2017-06-09 04:28] LABS: INR 1.76 (0.9-1.15); Partial Thromboplastin Time 33.1 sec (22.64-33.71)
[2017-06-09 04:30] LABS: Prothrombin Time 19.3 sec (9.37-12.3)
[2017-06-09 04:38] LABS: Lactic Acid w/Reflex 3.6 mmol/L (0.4-2.0)
[2017-06-09 04:44] LABS: B-Type Natriuretic Peptide > 5000.00 pg/mL (0-100)
[2017-06-09 04:48] LABS: Calcium 8.3 mg/dL (8.5-10.1)
[2017-06-09 04:49] LABS: REFLEX LACTIC ACID YES OR NO YES
[2017-06-09 04:51] LABS: Albumin 3.3 g/dL (3.4-5.0); BUN/Creatinine Ratio 32.9; Magnesium 2.3 mg/dL (1.6-2.6)
[2017-06-09 04:53] LABS: Temperature: 22.7 C (20.0-25.0)
[2017-06-09] MEDS ORDERED: SODIUM CHLORIDE 0.9% 2,000 ML IV ONE (05:00)
[2017-06-09] MEDS ORDERED: cefTRIAXone 1GM/50ML D5W 50 ML IV ONE (05:00)
[2017-06-09 05:08] LABS: Bilirubin, Total 2.5 mg/dL (0.2-1.0); Total Protein 6.7 g/dL (6.4-8.2)
[2017-06-09] MEDS ORDERED: SODIUM CHLORIDE 0.9% 1,000 ML, SODIUM CHL 0.9% 1,000 ML IV ONE ×2 (05:45)
[2017-06-09] MEDS ORDERED: ONDANSETRON HCL 4 MG/2 ML VIAL IV ONE (06:15)
[2017-06-09] MEDS ORDERED: HYDROmorphone HCL 2 MG/ML VL IV ONE (06:15)
[2017-06-09] MEDS ORDERED: ENOXAPARIN SOD 100 MG/1 ML SYRINGE SC ONE (07:00)
[2017-06-09] MEDS ORDERED: CLINDAMYCIN 300MG IV 50 ML IV ONE (09:30)
[2017-06-09] MEDS ORDERED: ACETAMINOPHEN 325 MG TAB PO PRN (09:30)
[2017-06-09] MEDS ORDERED: ONDANSETRON HCL 4 MG/2 ML VIAL IV PRN (09:30)
[2017-06-09] MEDS ORDERED: MORPHINE SULF INJ 2 MG/ML SYRINGE 1ML IV PRN (09:30)
[2017-06-09] MEDS ORDERED: NITROGLYCERIN 0.4 MG SL TAB SL PRN ×2 (09:30)
[2017-06-09] MEDS ORDERED: ALUM & MAG HYDROX-SIMETH LIQ(MAALOX) 30 ML PO ONE (09:30)
[2017-06-09] MEDS: DOCUSATE SOD 100 MG CAP PO SCH (09:59)
[2017-06-09] MEDS: CARVEDILOL 3.125 MG TAB PO SCH ×2 (09:59→22:00)
[2017-06-09] MEDS ORDERED: PATIENTS OWN MEDICATION IN SCH ×2 (10:00)
[2017-06-09] MEDS ORDERED: ENALAPRIL MALEATE 2.5 MG TAB PO SCH (10:00)
[2017-06-09] MEDS ORDERED: POTASSIUM CHL 10 Meq TABLET PO SCH (10:00)
[2017-06-09] MEDS ORDERED: FUROSEMIDE 40 MG/4 ML VIAL IV SCH (10:00)
[2017-06-09] MEDS ORDERED: ENOXAPARIN SOD 100 MG/1 ML SYRINGE SC SCH (10:00)
[2017-06-09] MEDS: PANTOPRAZOLE 40 MG TAB PO SCH (10:24)
[2017-06-09] MEDS: ASPirin 81 mg TAB PO SCH (10:25)
[2017-06-09] MEDS: CLOPIDOGREL BISULFATE 75 MG TAB PO SCH (10:25)
[2017-06-09] MEDS: POTASSIUM CHL 10 Meq TABLET PO SCH (10:25)
[2017-06-09] MEDS: BUDESONIDE (INHALATION) 0.5 MG/2 ML NEB NEB SCH ×2 (11:14→18:20)
[2017-06-09] MEDS: IPRATROPIUM BROM 0.5 MG/2.5ML INH SOL NEB SCH ×2 (11:14→18:20)
[2017-06-09] MEDS: ALBUTEROL SULF 2.5 MG/0.5ML(0.5%) NEB SOLN NEB SCH ×2 (11:14→18:20)
[2017-06-09 11:19] VITALS: BP 107/70
[2017-06-09] MEDS: BOOST PLUS 8 ounce PO SCH ×2 (13:16→18:28)
[2017-06-09] MEDS: SODIUM CHLOR 0.9% PF (SALINE LOCK) 10ML VIAL IV SCH ×2 (14:18→22:16)
[2017-06-09] MEDS: CLINDAMYCIN 300MG IV 50 ML IV SCH ×2 (14:18→22:22)
[2017-06-09 15:14] VITALS: BP 95/73
[2017-06-09] MEDS: TAMSULOSIN HYDROCHLORIDE 0.4 MG CAP PO SCH (18:44)
[2017-06-09] MEDS: BUMETANIDE (0.25 MG/ML) INJ 10ML IV SCH (18:45)
[2017-06-09] MEDS ORDERED: ALBUMIN 25% 100 ML IV ONE (20:45)
[2017-06-09] MEDS: ATORVASTATIN 20 MG TAB PO SCH (22:22)
[2017-06-10] MEDS: BUMETANIDE (0.25 MG/ML) INJ 10ML IV SCH ×2 (00:01→18:00)
[2017-06-10] MEDS: IPRATROPIUM BROM 0.5 MG/2.5ML INH SOL NEB SCH ×4 (00:27→20:03)
[2017-06-10] MEDS: ALBUTEROL SULF 2.5 MG/0.5ML(0.5%) NEB SOLN NEB SCH ×4 (00:27→20:03)
[2017-06-10] MEDS: HYDROcodone-ACET 5/325MG TAB PO PRN ×2 (00:40→14:36)
[2017-06-10 04:01] LABS: Basophils # (auto) 0 uL; Basophils % (auto) 0.1 % (0.0-2.0); CONDITION Y; DEFINITIVE SEE PRINTOUT; Eosinophils # (auto) 0 uL; Eosinophils % (auto) 0.4 % (0.0-7.0); Hematocrit 35.8 % (41.0-53.0); Hemoglobin 11.1 g/dL (13.5-17.5); Lymphocytes # (auto) 0.8 uL; Lymphocytes % (auto) 10.4 % (10.0-50.0); Mean Corpuscular Hgb Conc. 31.2 g/dL (32.0-36.0); Mean Corpuscular Volume 83.4 fL (80.0-100.0); Mean Platelet Volume 8.1 fL (7.4-10.4); Monocytes # (auto) 0.8 uL; Monocytes % (auto) 10.8 % (0.0-12.0); Neutrophils # (auto) 6.1 uL; Neutrophils % (auto) 78.3 % (37.0-80.0); Platelet Count (auto) 186 10^3/uL (140-450); White Blood Cell 7.7 10^3/uL (4.4-10.8)
[2017-06-10 04:04] LABS: Red Cell Distribution Width 20.3 % (11.6-16.0)
[2017-06-10 04:33] LABS: Bilirubin, Total 1.3 mg/dL (0.2-1.0); Calcium 7.9 mg/dL (8.5-10.1); Magnesium 2.3 mg/dL (1.6-2.6); Potassium 3.8 mmol/L (3.5-5.1); Total Protein 5.8 g/dL (6.4-8.2)
[2017-06-10 04:39] LABS: Anisocytosis Slight; Burr Cells FEW; Hypochromia Slight; Ovalocytes FEW; Platelet Estimate Adequate
[2017-06-10 04:49] LABS: BUN/Creatinine Ratio 33.6
[2017-06-10] MEDS: CLINDAMYCIN 300MG IV 50 ML IV SCH ×3 (06:02→22:00)
[2017-06-10] MEDS: SODIUM CHLOR 0.9% PF (SALINE LOCK) 10ML VIAL IV SCH ×3 (06:03→22:00)
[2017-06-10] MEDS ORDERED: ENOXAPARIN SOD 100 MG/1 ML SYRINGE SC SCH (07:00)
[2017-06-10] MEDS: PHENYLEPHRINE INJ 20 MG in SODIUM CHL 0.9% 250 ML IV SCH ×4 (07:25→23:57)
[2017-06-10] MEDS ORDERED: BUMETANIDE (0.25MG/ML) 4 ML VIAL IV ONE (07:30)
[2017-06-10] MEDS: BOOST PLUS 8 ounce PO SCH ×3 (08:00→18:00)
[2017-06-10] MEDS: cefTRIAXone 1GM/50ML D5W 50 ML IV SCH (09:07)
[2017-06-10] MEDS: CARVEDILOL 3.125 MG TAB PO SCH ×2 (10:00→22:00)
[2017-06-10] MEDS: BUDESONIDE (INHALATION) 0.5 MG/2 ML NEB NEB SCH ×2 (10:04→20:03)
[2017-06-10] MEDS: ASPirin 81 mg TAB PO SCH (10:08)
[2017-06-10] MEDS: POTASSIUM CHL 10 Meq TABLET PO SCH (10:09)
[2017-06-10] MEDS: PANTOPRAZOLE 40 MG TAB PO SCH (10:09)
[2017-06-10] MEDS: DOCUSATE SOD 100 MG CAP PO SCH (10:09)
[2017-06-10] MEDS: CLOPIDOGREL BISULFATE 75 MG TAB PO SCH (10:09)
[2017-06-10 12:45] LABS: Allen Test No; Base Excess -0.9 mmol/L (-2.0-2.0); Blood 02Sat 91.2 % (96-100); Blood COHb 0.3 % (0.5-1.5); Blood MetHb 0.6 % (0.0-1.5); HCO3 26.2 mmol/L (22-26.0); HHb 8.7 % (0.0-5.0); MODE NASAL CANNULA; O2Hb 90.4 % (94.0-97.0); PCO2 54.1 mmHg (35.0-45.0); PCO2(T) 54.1 mmHg (35.0-45.0); PO2 72.2 mmHg (80.0-100.0); PO2(T) 72.2 mmHg (80.0-100.0); Room 1019-ERT; Sample Type Arterial; pH 7.303 (7.350-7.450)
[2017-06-10] MEDS: MORPHINE SULF INJ 2 MG/ML SYRINGE 1ML IV PRN (17:26)
[2017-06-10] MEDS: TAMSULOSIN HYDROCHLORIDE 0.4 MG CAP PO SCH (18:00)
[2017-06-10] MEDS: PHENAZOPYRIDINE HCL 100 MG TAB PO SCH (18:00)
[2017-06-10] MEDS: ATORVASTATIN 20 MG TAB PO SCH (22:00)
[2017-06-10] MEDS: ZOLPIDEM TARTRATE 5 MG TAB PO PRN (23:09)
[2017-06-11] VITALS (58 sets, daily range): BP systolic 81–129; BP diastolic 36–79
[2017-06-11] MEDS: IPRATROPIUM BROM 0.5 MG/2.5ML INH SOL NEB SCH ×4 (00:22→18:44)
[2017-06-11] MEDS: ALBUTEROL SULF 2.5 MG/0.5ML(0.5%) NEB SOLN NEB SCH ×4 (00:22→18:44)
[2017-06-11] MEDS: LORazepam 0.5 MG TAB PO PRN (01:48)
[2017-06-11] MEDS ORDERED: ENOXAPARIN SOD 30 MG/0.3 ML SYRINGE ONE (03:22)
[2017-06-11] MEDS ORDERED: ENOXAPARIN SOD 60 MG/0.6 ML SYRINGE SC ONE (03:22)
[2017-06-11] MEDS ORDERED: ENOXAPARIN SOD 100 MG/1 ML SYRINGE SC ONE (03:30)
[2017-06-11] MEDS ORDERED: ASPirin 325 MG TAB PO ONE (03:30)
[2017-06-11] MEDS ORDERED: ENOXAPARIN SOD 30 MG/0.3 ML SYRINGE IV ONE (03:30)
[2017-06-11] MEDS: MORPHINE SULF INJ 2 MG/ML SYRINGE 1ML IV PRN (03:34)
[2017-06-11 04:12] LABS: Basophils # (auto) 0 uL; Basophils % (auto) 0.3 % (0.0-2.0); CONDITION Y; DEFINITIVE SEE PRINTOUT; Eosinophils # (auto) 0.1 uL; Eosinophils % (auto) 1.1 % (0.0-7.0); Hematocrit 37.7 % (41.0-53.0); Lymphocytes # (auto) 0.5 uL; Lymphocytes % (auto) 8.5 % (10.0-50.0); Mean Corpuscular Hemoglobin 26.2 pg (28.0-32.0); Mean Corpuscular Hgb Conc. 31.8 g/dL (32.0-36.0); Mean Corpuscular Volume 82.4 fL (80.0-100.0); Mean Platelet Volume 7.8 fL (7.4-10.4); Monocytes # (auto) 0.4 uL; Monocytes % (auto) 7.7 % (0.0-12.0); Neutrophils # (auto) 4.7 uL; Neutrophils % (auto) 82.4 % (37.0-80.0); Platelet Count (auto) 200 10^3/uL (140-450); Red Cell Distribution Width 19.7 % (11.6-16.0); White Blood Cell 5.7 10^3/uL (4.4-10.8)
[2017-06-11 04:46] LABS: BUN/Creatinine Ratio 35.8; Bilirubin, Total 1.4 mg/dL (0.2-1.0); Calcium 7.8 mg/dL (8.5-10.1); Magnesium 1.9 mg/dL (1.6-2.6); Phosphorus 3.4 mg/dL (2.5-4.90); Potassium 3.3 mmol/L (3.5-5.1); Total Protein 6.3 g/dL (6.4-8.2); Uric Acid 14.4 mg/dL (3.5-7.2)
[2017-06-11] MEDS ORDERED: PHENYLEPHRINE IV 250 ML IV ONE (04:53)
[2017-06-11] MEDS: BUDESONIDE (INHALATION) 0.5 MG/2 ML NEB NEB SCH ×2 (05:46→18:45)
[2017-06-11] MEDS: SODIUM CHLOR 0.9% PF (SALINE LOCK) 10ML VIAL IV SCH ×3 (06:11→23:18)
[2017-06-11] MEDS: ENOXAPARIN SOD 100 MG/1 ML SYRINGE SC SCH ×2 (06:15→18:32)
[2017-06-11] MEDS: CLINDAMYCIN 300MG IV 50 ML IV SCH ×3 (06:22→23:15)
[2017-06-11] MEDS: BUMETANIDE (0.25 MG/ML) INJ 10ML IV SCH ×2 (06:22→18:31)
[2017-06-11] MEDS: BOOST PLUS 8 ounce PO SCH ×3 (08:00→18:00)
[2017-06-11] MEDS: cefTRIAXone 1GM/50ML D5W 50 ML IV SCH (09:31)
[2017-06-11] MEDS: CARVEDILOL 3.125 MG TAB PO SCH ×2 (10:05→23:17)
[2017-06-11] MEDS: CLOPIDOGREL BISULFATE 75 MG TAB PO SCH (10:05)
[2017-06-11] MEDS: PHENAZOPYRIDINE HCL 100 MG TAB PO SCH ×3 (10:05→18:32)
[2017-06-11] MEDS: POTASSIUM CHL 10 Meq TABLET PO SCH (10:05)
[2017-06-11] MEDS: DOCUSATE SOD 100 MG CAP PO SCH (10:05)
[2017-06-11] MEDS: PANTOPRAZOLE 40 MG TAB PO SCH (10:06)
[2017-06-11] MEDS: ACETYLCYSTEINE ORAL for CIN 20%(200MG/ML) 4ML PO SCH ×2 (10:06→23:18)
[2017-06-11] MEDS: ASPirin 81 mg TAB PO SCH (10:06)
[2017-06-11] MEDS: PHENYLEPHRINE INJ 20 MG in SODIUM CHL 0.9% 250 ML IV SCH ×2 (13:00→23:29)
[2017-06-11] MEDS: TAMSULOSIN HYDROCHLORIDE 0.4 MG CAP PO SCH (18:31)
[2017-06-11] MEDS: ATORVASTATIN 20 MG TAB PO SCH (23:17)
[2017-06-11] MEDS: HYDROcodone-ACET 5/325MG TAB PO PRN (23:23)
[2017-06-12] VITALS (92 sets, daily range): BP systolic 80–122; BP diastolic 31–93
[2017-06-12] MEDS: ALBUTEROL SULF 2.5 MG/0.5ML(0.5%) NEB SOLN NEB SCH ×4 (00:31→18:51)
[2017-06-12] MEDS: IPRATROPIUM BROM 0.5 MG/2.5ML INH SOL NEB SCH ×4 (00:31→18:51)
[2017-06-12 04:09] LABS: BUN/Creatinine Ratio 38.6; Calcium 7.8 mg/dL (8.5-10.1); Phosphorus 2.9 mg/dL (2.5-4.90)
[2017-06-12] MEDS ORDERED: POTASSIUM CHL 20 Meq TABLET PO ONE (05:00)
[2017-06-12] MEDS: SODIUM CHLOR 0.9% PF (SALINE LOCK) 10ML VIAL IV SCH ×3 (05:38→21:56)
[2017-06-12] MEDS: CLINDAMYCIN 300MG IV 50 ML IV SCH ×3 (05:38→21:56)
[2017-06-12] MEDS: ENOXAPARIN SOD 100 MG/1 ML SYRINGE SC SCH ×2 (05:39→18:45)
[2017-06-12] MEDS: BUMETANIDE (0.25 MG/ML) INJ 10ML IV SCH ×2 (05:39→18:45)
[2017-06-12] MEDS: BUDESONIDE (INHALATION) 0.5 MG/2 ML NEB NEB SCH ×2 (06:11→18:52)
[2017-06-12] MEDS: PHENYLEPHRINE INJ 20 MG in SODIUM CHL 0.9% 250 ML IV SCH ×3 (06:32→18:00)
[2017-06-12] MEDS: BOOST PLUS 8 ounce PO SCH ×3 (08:00→18:00)
[2017-06-12] MEDS: cefTRIAXone 1GM/50ML D5W 50 ML IV SCH (08:56)
[2017-06-12] MEDS: POTASSIUM CHL 10 Meq TABLET PO SCH (08:58)
[2017-06-12] MEDS: ASPirin 81 mg TAB PO SCH (08:58)
[2017-06-12] MEDS: CARVEDILOL 3.125 MG TAB PO SCH ×2 (08:58→21:56)
[2017-06-12] MEDS: CLOPIDOGREL BISULFATE 75 MG TAB PO SCH (08:58)
[2017-06-12] MEDS: PANTOPRAZOLE 40 MG TAB PO SCH (08:58)
[2017-06-12] MEDS: PHENAZOPYRIDINE HCL 100 MG TAB PO SCH ×2 (08:58→14:07)
[2017-06-12] MEDS: DOCUSATE SOD 100 MG CAP PO SCH (08:59)
[2017-06-12] MEDS: ACETYLCYSTEINE ORAL for CIN 20%(200MG/ML) 4ML PO SCH ×2 (09:03→21:57)
[2017-06-12] MEDS: HYDROcodone-ACET 5/325MG TAB PO PRN ×3 (10:15→21:58)
[2017-06-12 10:19] LABS: Hepatitis B Surface Antibody Negative
[2017-06-12] MEDS ORDERED: PHENYLEPHRINE IV 250 ML IV ONE ×2 (13:25→21:31)
[2017-06-12] MEDS: TAMSULOSIN HYDROCHLORIDE 0.4 MG CAP PO SCH (18:45)
[2017-06-12] MEDS: ATORVASTATIN 20 MG TAB PO SCH (21:56)
[2017-06-12] MEDS: MORPHINE SULF INJ 2 MG/ML SYRINGE 1ML IV PRN (22:45)
[2017-06-12] MEDS: LORazepam 0.5 MG TAB PO PRN (22:49)
[2017-06-12] MEDS: ZOLPIDEM TARTRATE 5 MG TAB PO PRN (22:52)
[2017-06-13] VITALS (90 sets, daily range): BP systolic 81–140; BP diastolic 42–92
[2017-06-13] MEDS: IPRATROPIUM BROM 0.5 MG/2.5ML INH SOL NEB SCH ×4 (00:10→18:26)
[2017-06-13] MEDS: ALBUTEROL SULF 2.5 MG/0.5ML(0.5%) NEB SOLN NEB SCH ×4 (00:10→18:26)
[2017-06-13] MEDS: MORPHINE SULF INJ 2 MG/ML SYRINGE 1ML IV PRN (03:10)
[2017-06-13] MEDS ORDERED: PHENYLEPHRINE IV 250 ML IV ONE ×2 (03:22→09:25)
[2017-06-13 03:41] LABS: Basophils # (auto) 0 uL; Basophils % (auto) 0.3 % (0.0-2.0); CONDITION Y; DEFINITIVE SEE PRINTOUT; Eosinophils # (auto) 0.1 uL; Eosinophils % (auto) 1.4 % (0.0-7.0); Hematocrit 35.5 % (41.0-53.0); Hemoglobin 11.2 g/dL (13.5-17.5); Lymphocytes # (auto) 0.9 uL; Lymphocytes % (auto) 10.3 % (10.0-50.0); Mean Corpuscular Hemoglobin 25.9 pg (28.0-32.0); Mean Corpuscular Hgb Conc. 31.5 g/dL (32.0-36.0); Mean Corpuscular Volume 82.2 fL (80.0-100.0); Mean Platelet Volume 8.2 fL (7.4-10.4); Monocytes # (auto) 0.7 uL; Monocytes % (auto) 7.9 % (0.0-12.0); Neutrophils # (auto) 6.7 uL; Neutrophils % (auto) 80.1 % (37.0-80.0); Platelet Count (auto) 187 10^3/uL (140-450); White Blood Cell 8.4 10^3/uL (4.4-10.8)
[2017-06-13 04:09] LABS: BUN/Creatinine Ratio 41.3; Calcium 7.5 mg/dL (8.5-10.1); Magnesium 1.6 mg/dL (1.6-2.6); Phosphorus 2.1 mg/dL (2.5-4.90); Potassium 3.6 mmol/L (3.5-5.1)
[2017-06-13 04:22] LABS: Red Cell Distribution Width 20.1 % (11.6-16.0)
[2017-06-13 05:09] LABS: Allen Test Yes; Base Excess 9.8 mmol/L (-2.0-2.0); Blood 02Sat 96.4 % (96-100); Blood COHb 1.2 % (0.5-1.5); Blood MetHb 0.4 % (0.0-1.5); HCO3 36.6 mmol/L (22-26.0); HHb 3.5 % (0.0-5.0); MODE MASK - SIMPLE; O2Hb 94.9 % (94.0-97.0); Sample Type Arterial; pH 7.403 (7.350-7.450)
[2017-06-13] MEDS: BUMETANIDE (0.25 MG/ML) INJ 10ML IV SCH ×2 (05:25→18:00)
[2017-06-13] MEDS: ENOXAPARIN SOD 100 MG/1 ML SYRINGE SC SCH ×5 (05:26→21:49)
[2017-06-13] MEDS: CLINDAMYCIN 300MG IV 50 ML IV SCH ×3 (05:26→21:49)
[2017-06-13] MEDS: SODIUM CHLOR 0.9% PF (SALINE LOCK) 10ML VIAL IV SCH ×3 (05:26→21:48)
[2017-06-13 05:54] LABS: Platelet Estimate Adequate
[2017-06-13 05:55] LABS: Anisocytosis Slight; Hypochromia Slight
[2017-06-13] MEDS: PHENYLEPHRINE INJ 20 MG in SODIUM CHL 0.9% 250 ML IV SCH ×3 (06:20→22:07)
[2017-06-13] MEDS ORDERED: MAGNESIUM SULFATE 1GM/100ML 100 ML IV ONE (07:00)
[2017-06-13] MEDS: BUDESONIDE (INHALATION) 0.5 MG/2 ML NEB NEB SCH ×2 (07:41→22:15)
[2017-06-13] MEDS: BOOST PLUS 8 ounce PO SCH ×3 (07:52→18:00)
[2017-06-13] MEDS: cefTRIAXone 1GM/50ML D5W 50 ML IV SCH (08:57)
[2017-06-13] MEDS ORDERED: LIDOCAINE 2%HCL (LOCAL ANESTH.) INJ 20ML MDV ONE (09:22)
[2017-06-13] MEDS ORDERED: IODIXANOL 320MG/ML 100ML BTL IV ONE (09:22)
[2017-06-13] MEDS: ASPirin 81 mg TAB PO SCH (09:22)
[2017-06-13] MEDS: DOCUSATE SOD 100 MG CAP PO SCH (09:23)
[2017-06-13] MEDS: CARVEDILOL 3.125 MG TAB PO SCH ×2 (09:49→21:48)
[2017-06-13] MEDS: CLOPIDOGREL BISULFATE 75 MG TAB PO SCH (09:49)
[2017-06-13] MEDS: PANTOPRAZOLE 40 MG TAB PO SCH (09:49)
[2017-06-13] MEDS: POTASSIUM CHL 10 Meq TABLET PO SCH (09:49)
[2017-06-13] MEDS: ACETYLCYSTEINE ORAL for CIN 20%(200MG/ML) 4ML PO SCH (10:00)
[2017-06-13] MEDS: TAMSULOSIN HYDROCHLORIDE 0.4 MG CAP PO SCH (18:00)
[2017-06-13] MEDS: PANTOPRAZOLE SODIUM 80 MG in SODIUM CHL 0.9% 60 ML IV SCH (19:45)
[2017-06-13] MEDS: LORazepam 0.5 MG TAB PO PRN (21:17)
[2017-06-13] MEDS: HYDROcodone-ACET 5/325MG TAB PO PRN (21:18)
[2017-06-13] MEDS: ATORVASTATIN 20 MG TAB PO SCH (21:49)
[2017-06-14] VITALS (94 sets, daily range): BP systolic 79–130; BP diastolic 33–71
[2017-06-14] MEDS: IPRATROPIUM BROM 0.5 MG/2.5ML INH SOL NEB SCH ×3 (00:12→18:29)
[2017-06-14] MEDS: ALBUTEROL SULF 2.5 MG/0.5ML(0.5%) NEB SOLN NEB SCH ×3 (00:12→18:29)
[2017-06-14] MEDS: ZOLPIDEM TARTRATE 5 MG TAB PO PRN ×2 (00:49→22:21)
[2017-06-14] MEDS: MORPHINE SULF INJ 2 MG/ML SYRINGE 1ML IV PRN ×2 (00:56→23:31)
[2017-06-14 01:46] LABS: Basophils # (auto) 0 uL; Basophils % (auto) 0.5 % (0.0-2.0); CONDITION Y; DEFINITIVE SEE PRINTOUT; Eosinophils # (auto) 0.1 uL; Eosinophils % (auto) 0.9 % (0.0-7.0); Hematocrit 24.7 % (41.0-53.0); Hemoglobin 7.8 g/dL (13.5-17.5); Lymphocytes # (auto) 0.9 uL; Lymphocytes % (auto) 9.4 % (10.0-50.0); Mean Corpuscular Hemoglobin 25.9 pg (28.0-32.0); Mean Corpuscular Hgb Conc. 31.5 g/dL (32.0-36.0); Mean Platelet Volume 8.3 fL (7.4-10.4); Monocytes # (auto) 1.1 uL; Monocytes % (auto) 12.2 % (0.0-12.0); Platelet Count (auto) 160 10^3/uL (140-450); Red Cell Distribution Width 19.9 % (11.6-16.0); White Blood Cell 9.1 10^3/uL (4.4-10.8)
[2017-06-14 02:26] LABS: Anisocytosis Slight; Platelet Estimate Adequate
[2017-06-14 02:27] LABS: Hypochromia Slight; Ovalocytes FEW
[2017-06-14] MEDS: HYDROcodone-ACET 5/325MG TAB PO PRN ×3 (03:44→21:15)
[2017-06-14] MEDS: PANTOPRAZOLE SODIUM 80 MG in SODIUM CHL 0.9% 60 ML IV SCH ×2 (03:44→15:00)
[2017-06-14 03:59] LABS: Basophils # (auto) 0 uL; Basophils % (auto) 0.3 % (0.0-2.0); CONDITION Y; DEFINITIVE SEE PRINTOUT; Eosinophils # (auto) 0.1 uL; Hemoglobin 7.6 g/dL (13.5-17.5); Lymphocytes % (auto) 12.2 % (10.0-50.0); Mean Corpuscular Hemoglobin 25.8 pg (28.0-32.0); Mean Corpuscular Hgb Conc. 31.5 g/dL (32.0-36.0); Mean Corpuscular Volume 81.8 fL (80.0-100.0); Mean Platelet Volume 8.1 fL (7.4-10.4); Monocytes # (auto) 0.9 uL; Neutrophils # (auto) 6.5 uL; Neutrophils % (auto) 75.5 % (37.0-80.0); Platelet Count (auto) 165 10^3/uL (140-450); White Blood Cell 8.6 10^3/uL (4.4-10.8)
[2017-06-14 04:05] LABS: Red Cell Distribution Width 20.2 % (11.6-16.0)
[2017-06-14 04:27] LABS: BUN/Creatinine Ratio 44.2; Calcium 7.3 mg/dL (8.5-10.1); Magnesium 1.5 mg/dL (1.6-2.6); Potassium 3.8 mmol/L (3.5-5.1)
[2017-06-14 05:18] LABS: INR 1.19 (0.9-1.15); Partial Thromboplastin Time 33.2 sec (22.64-33.71)
[2017-06-14] MEDS: SODIUM CHLOR 0.9% PF (SALINE LOCK) 10ML VIAL IV SCH ×3 (05:24→21:46)
[2017-06-14] MEDS: CLINDAMYCIN 300MG IV 50 ML IV SCH ×3 (05:44→21:46)
[2017-06-14] MEDS: BUMETANIDE (0.25 MG/ML) INJ 10ML IV SCH ×2 (05:44→18:17)
[2017-06-14] MEDS: BOOST PLUS 8 ounce PO SCH ×2 (08:00→12:00)
[2017-06-14 08:06] LABS: Anisocytosis Slight; Platelet Estimate Adequate
[2017-06-14 08:07] LABS: Hypochromia Slight
[2017-06-14] MEDS: cefTRIAXone 1GM/50ML D5W 50 ML IV SCH (09:00)
[2017-06-14] MEDS: PHENYLEPHRINE INJ 20 MG in SODIUM CHL 0.9% 250 ML IV SCH ×3 (09:55→21:47)
[2017-06-14] MEDS: DOCUSATE SOD 100 MG CAP PO SCH (10:00)
[2017-06-14] MEDS: CLOPIDOGREL BISULFATE 75 MG TAB PO SCH (10:00)
[2017-06-14] MEDS: CARVEDILOL 3.125 MG TAB PO SCH ×2 (10:00→21:46)
[2017-06-14] MEDS: ASPirin 81 mg TAB PO SCH (10:00)
[2017-06-14] MEDS: LORazepam 0.5 MG TAB PO PRN ×3 (10:12→22:21)
[2017-06-14] MEDS: POTASSIUM CHL 10 Meq TABLET PO SCH (10:12)
[2017-06-14] MEDS: PANTOPRAZOLE 40 MG TAB PO SCH (10:12)
[2017-06-14] MEDS: MAGNESIUM SULFATE 1GM/100ML 100 ML IV SCH ×4 (13:00→16:00)
[2017-06-14 14:23] LABS: Basophils # (auto) 0 uL; Basophils % (auto) 0.3 % (0.0-2.0); CONDITION Y; DEFINITIVE SEE PRINTOUT; Eosinophils # (auto) 0.1 uL; Eosinophils % (auto) 1.4 % (0.0-7.0); Hematocrit 23.4 % (41.0-53.0); Hemoglobin 7.4 g/dL (13.5-17.5); Lymphocytes # (auto) 1.1 uL; Lymphocytes % (auto) 13.6 % (10.0-50.0); Mean Corpuscular Hemoglobin 26.4 pg (28.0-32.0); Mean Corpuscular Hgb Conc. 31.8 g/dL (32.0-36.0); Mean Corpuscular Volume 83.1 fL (80.0-100.0); Mean Platelet Volume 8.2 fL (7.4-10.4); Monocytes # (auto) 1.2 uL; Monocytes % (auto) 14.7 % (0.0-12.0); Neutrophils # (auto) 5.8 uL; Platelet Count (auto) 154 10^3/uL (140-450); Red Cell Distribution Width 19.8 % (11.6-16.0); White Blood Cell 8.3 10^3/uL (4.4-10.8)
[2017-06-14 14:58] LABS: Anisocytosis Slight; Hypochromia Slight; Ovalocytes FEW; Platelet Estimate Adequate
[2017-06-14] MEDS: Boost Glucose Control 8 Ounces PO SCH (18:10)
[2017-06-14] MEDS: TAMSULOSIN HYDROCHLORIDE 0.4 MG CAP PO SCH (18:17)
[2017-06-14] MEDS: BUDESONIDE (INHALATION) 0.5 MG/2 ML NEB NEB SCH (18:29)
[2017-06-14] MEDS: ATORVASTATIN 20 MG TAB PO SCH (21:46)
[2017-06-14] MEDS: PANTOPRAZOLE SODIUM 40 MG/10 ML VIAL IV SCH (21:46)
[2017-06-15] VITALS (99 sets, daily range): BP systolic 78–158; BP diastolic 29–102
[2017-06-15] MEDS: ALBUTEROL SULF 2.5 MG/0.5ML(0.5%) NEB SOLN NEB SCH ×4 (00:19→18:39)
[2017-06-15] MEDS: IPRATROPIUM BROM 0.5 MG/2.5ML INH SOL NEB SCH ×4 (00:19→18:39)
[2017-06-15 00:56] LABS: Basophils # (auto) 0 uL; DEFINITIVE SEE PRINTOUT; Eosinophils # (auto) 0.1 uL; Hemoglobin 8.1 g/dL (13.5-17.5); Lymphocytes # (auto) 1.3 uL; Mean Corpuscular Volume 83.3 fL (80.0-100.0); SUSPECT SEE PRINTOUT
[2017-06-15 01:01] LABS: Basophils % (auto) 0.3 % (0.0-2.0); Eosinophils % (auto) 0.9 % (0.0-7.0); Hematocrit 24.8 % (41.0-53.0); Lymphocytes % (auto) 11.7 % (10.0-50.0); Mean Corpuscular Hemoglobin 27.4 pg (28.0-32.0); Mean Corpuscular Hgb Conc. 32.9 g/dL (32.0-36.0); Mean Platelet Volume 8.1 fL (7.4-10.4); Monocytes # (auto) 1.5 uL; Monocytes % (auto) 13.8 % (0.0-12.0); Neutrophils # (auto) 8.2 uL; Neutrophils % (auto) 73.3 % (37.0-80.0); Platelet Count (auto) 126 10^3/uL (140-450); Red Cell Distribution Width 17.2 % (11.6-16.0); White Blood Cell 11.1 10^3/uL (4.4-10.8)
[2017-06-15] MEDS: HYDROcodone-ACET 5/325MG TAB PO PRN (03:37)
[2017-06-15 03:54] LABS: Basophils # (auto) 0 uL; Basophils % (auto) 0.2 % (0.0-2.0); CONDITION Y; DEFINITIVE SEE PRINTOUT; Eosinophils # (auto) 0.1 uL; Eosinophils % (auto) 0.9 % (0.0-7.0); Hemoglobin 7.6 g/dL (13.5-17.5); Lymphocytes # (auto) 1.1 uL; Lymphocytes % (auto) 10.5 % (10.0-50.0); Mean Corpuscular Hemoglobin 27.7 pg (28.0-32.0); Mean Corpuscular Volume 83.8 fL (80.0-100.0); Mean Platelet Volume 8.6 fL (7.4-10.4); Monocytes % (auto) 9.4 % (0.0-12.0); Neutrophils # (auto) 8.4 uL; Platelet Count (auto) 158 10^3/uL (140-450); Red Cell Distribution Width 18.9 % (11.6-16.0); White Blood Cell 10.6 10^3/uL (4.4-10.8)
[2017-06-15 04:13] LABS: Potassium 4.2 mmol/L (3.5-5.1)
[2017-06-15 04:19] LABS: BUN/Creatinine Ratio 43.9; Calcium 7.1 mg/dL (8.5-10.1); Magnesium 1.8 mg/dL (1.6-2.6)
[2017-06-15 04:20] LABS: INR 1.1 (0.9-1.15); Partial Thromboplastin Time 29.2 sec (22.64-33.71)
[2017-06-15] MEDS: SODIUM CHLOR 0.9% PF (SALINE LOCK) 10ML VIAL IV SCH ×3 (05:12→22:22)
[2017-06-15] MEDS: BUMETANIDE (0.25 MG/ML) INJ 10ML IV SCH ×2 (05:46→17:35)
[2017-06-15] MEDS: CLINDAMYCIN 300MG IV 50 ML IV SCH ×3 (06:01→22:22)
[2017-06-15] MEDS: Boost Glucose Control 8 Ounces PO SCH ×2 (08:09→17:34)
[2017-06-15] MEDS: PANTOPRAZOLE SODIUM 40 MG/10 ML VIAL IV SCH ×2 (08:16→22:22)
[2017-06-15] MEDS: cefTRIAXone 1GM/50ML D5W 50 ML IV SCH (08:17)
[2017-06-15] MEDS: CLOPIDOGREL BISULFATE 75 MG TAB PO SCH (08:31)
[2017-06-15] MEDS: POTASSIUM CHL 10 Meq TABLET PO SCH (08:31)
[2017-06-15] MEDS: DOCUSATE SOD 100 MG CAP PO SCH (08:31)
[2017-06-15] MEDS: ASPirin 81 mg TAB PO SCH (08:31)
[2017-06-15] MEDS: CARVEDILOL 3.125 MG TAB PO SCH ×2 (10:00→22:30)
[2017-06-15] MEDS: BUDESONIDE (INHALATION) 0.5 MG/2 ML NEB NEB SCH ×2 (10:00→18:39)
[2017-06-15] MEDS: PHENYLEPHRINE INJ 20 MG in SODIUM CHL 0.9% 250 ML IV SCH ×2 (10:55→17:34)
[2017-06-15] MEDS ORDERED: GOLYTELY 4L KIT PO ONE (12:00)
[2017-06-15 15:02] LABS: Basophils # (auto) 0 uL; Basophils % (auto) 0.2 % (0.0-2.0); CONDITION Y; DEFINITIVE SEE PRINTOUT; Eosinophils # (auto) 0 uL; Hematocrit 21.2 % (41.0-53.0); Hemoglobin 7.1 g/dL (13.5-17.5); Lymphocytes # (auto) 0.8 uL; Mean Corpuscular Hemoglobin 27.9 pg (28.0-32.0); Mean Corpuscular Hgb Conc. 33.3 g/dL (32.0-36.0); Mean Corpuscular Volume 83.7 fL (80.0-100.0); Mean Platelet Volume 8.9 fL (7.4-10.4); Monocytes # (auto) 1.2 uL; Monocytes % (auto) 10.4 % (0.0-12.0); Neutrophils # (auto) 9.7 uL; Neutrophils % (auto) 82.4 % (37.0-80.0); Platelet Count (auto) 144 10^3/uL (140-450); Red Cell Distribution Width 18.4 % (11.6-16.0); White Blood Cell 11.7 10^3/uL (4.4-10.8)
[2017-06-15] MEDS: TAMSULOSIN HYDROCHLORIDE 0.4 MG CAP PO SCH (18:13)
[2017-06-15] MEDS: ATORVASTATIN 20 MG TAB PO SCH (22:30)
[2017-06-16] VITALS (68 sets, daily range): BP systolic 51–148; BP diastolic 22–89
[2017-06-16] MEDS: ALBUTEROL SULF 2.5 MG/0.5ML(0.5%) NEB SOLN NEB SCH ×4 (00:17→18:30)
[2017-06-16] MEDS: IPRATROPIUM BROM 0.5 MG/2.5ML INH SOL NEB SCH ×4 (00:17→18:30)
[2017-06-16 01:25] LABS: Basophils # (auto) 0 uL; Basophils % (auto) 0.1 % (0.0-2.0); CONDITION Y; DEFINITIVE SEE PRINTOUT; Eosinophils # (auto) 0 uL; Hematocrit 23.8 % (41.0-53.0); Hemoglobin 7.8 g/dL (13.5-17.5); Mean Corpuscular Hemoglobin 27.9 pg (28.0-32.0); Mean Corpuscular Hgb Conc. 32.6 g/dL (32.0-36.0); Mean Corpuscular Volume 85.7 fL (80.0-100.0); Mean Platelet Volume 8.7 fL (7.4-10.4); Monocytes # (auto) 0.8 uL; Monocytes % (auto) 6.2 % (0.0-12.0); Neutrophils # (auto) 10.5 uL; Neutrophils % (auto) 85.7 % (37.0-80.0); Platelet Count (auto) 44 10^3/uL (140-450); Red Cell Distribution Width 17.6 % (11.6-16.0); White Blood Cell 12.2 10^3/uL (4.4-10.8)
[2017-06-16] MEDS: PHENYLEPHRINE INJ 20 MG in SODIUM CHL 0.9% 250 ML IV SCH ×3 (03:35→20:15)
[2017-06-16] MEDS: BUDESONIDE (INHALATION) 0.5 MG/2 ML NEB NEB SCH ×2 (05:59→18:30)
[2017-06-16] MEDS: BUMETANIDE (0.25 MG/ML) INJ 10ML IV SCH ×2 (06:36→18:12)
[2017-06-16] MEDS: CLINDAMYCIN 300MG IV 50 ML IV SCH ×2 (06:37→13:43)
[2017-06-16] MEDS: SODIUM CHLOR 0.9% PF (SALINE LOCK) 10ML VIAL IV SCH ×2 (06:37→13:44)
[2017-06-16] MEDS ORDERED: diphenhdrAMINE HCL 50 MG/1 ML VL ONE (07:18)
[2017-06-16] MEDS ORDERED: MIDAZOLAM HCL 5 MG/ML-1ML VIAL ONE (07:18)
[2017-06-16] MEDS ORDERED: fentaNYL CITRATE 100 MCG/2 ML VL ONE (07:18)
[2017-06-16] MEDS ORDERED: SODIUM CHLORIDE LOCK 10 ML ONE (07:18)
[2017-06-16] MEDS ORDERED: NALOXONE HCL 0.4 MG/ML VIAL ONE (07:19)
[2017-06-16] MEDS ORDERED: FLUMAZENIL 0.1 MG/ML INJ 10ML MDV IV ONE (07:19)
[2017-06-16] MEDS: Boost Glucose Control 8 Ounces PO SCH ×2 (08:00→18:00)
[2017-06-16 08:23] LABS: Basophils # (auto) 0 uL; Basophils % (auto) 0.1 % (0.0-2.0); CONDITION Y; Eosinophils # (auto) 0 uL; Hematocrit 25.8 % (41.0-53.0); Hemoglobin 8.5 g/dL (13.5-17.5); Lymphocytes # (auto) 0.9 uL; Lymphocytes % (auto) 6.1 % (10.0-50.0); Mean Corpuscular Hemoglobin 28.8 pg (28.0-32.0); Mean Corpuscular Hgb Conc. 33.1 g/dL (32.0-36.0); Mean Corpuscular Volume 86.8 fL (80.0-100.0); Monocytes # (auto) 1.4 uL; Monocytes % (auto) 9.6 % (0.0-12.0); Neutrophils # (auto) 12.6 uL; Neutrophils % (auto) 84.2 % (37.0-80.0); Platelet Count (auto) 169 10^3/uL (140-450); Red Cell Distribution Width 18.1 % (11.6-16.0)
[2017-06-16 08:37] LABS: BUN/Creatinine Ratio 30.2; Calcium 7.7 mg/dL (8.5-10.1); Magnesium 1.7 mg/dL (1.6-2.6); Potassium 3.7 mmol/L (3.5-5.1)
[2017-06-16] MEDS: PANTOPRAZOLE SODIUM 40 MG/10 ML VIAL IV SCH (09:57)
[2017-06-16] MEDS: POTASSIUM CHL 10 Meq TABLET PO SCH (09:58)
[2017-06-16] MEDS: CARVEDILOL 3.125 MG TAB PO SCH ×2 (09:58→22:00)
[2017-06-16] MEDS: ASPirin 81 mg TAB PO SCH (10:00)
[2017-06-16] MEDS: CLOPIDOGREL BISULFATE 75 MG TAB PO SCH (10:00)
[2017-06-16] MEDS: DOCUSATE SOD 100 MG CAP PO SCH (10:00)
[2017-06-16] MEDS: cefTRIAXone 1GM/50ML D5W 50 ML IV SCH (10:02)
[2017-06-16] MEDS: HYDROcodone-ACET 5/325MG TAB PO PRN (10:12)
[2017-06-16] MEDS ORDERED: PHENYLEPHRINE IV 250 ML IV ONE (13:29)
[2017-06-16 13:53] LABS: Basophils # (auto) 0.1 uL; Basophils % (auto) 0.4 % (0.0-2.0); CONDITION Y; DEFINITIVE SEE PRINTOUT; Eosinophils # (auto) 0 uL; Hematocrit 22.1 % (41.0-53.0); Hemoglobin 7.7 g/dL (13.5-17.5); Lymphocytes # (auto) 1.1 uL; Lymphocytes % (auto) 7.1 % (10.0-50.0); Mean Corpuscular Hemoglobin 29.9 pg (28.0-32.0); Mean Corpuscular Hgb Conc. 34.9 g/dL (32.0-36.0); Mean Corpuscular Volume 85.8 fL (80.0-100.0); Mean Platelet Volume 8.8 fL (7.4-10.4); Monocytes # (auto) 1.4 uL; Monocytes % (auto) 9.4 % (0.0-12.0); Neutrophils # (auto) 12.2 uL; Neutrophils % (auto) 83.1 % (37.0-80.0); Platelet Count (auto) 154 10^3/uL (140-450); Red Cell Distribution Width 18.1 % (11.6-16.0); White Blood Cell 14.7 10^3/uL (4.4-10.8)
[2017-06-16] MEDS: TAMSULOSIN HYDROCHLORIDE 0.4 MG CAP PO SCH (18:12)
[2017-06-16 19:50] LABS: Basophils # (auto) 0.1 uL; Basophils % (auto) 0.3 % (0.0-2.0); CONDITION Y; DEFINITIVE SEE PRINTOUT; Eosinophils # (auto) 0 uL; Hematocrit 23.9 % (41.0-53.0); Lymphocytes # (auto) 1.3 uL; Lymphocytes % (auto) 7.4 % (10.0-50.0); Mean Corpuscular Hgb Conc. 33.5 g/dL (32.0-36.0); Mean Corpuscular Volume 86.3 fL (80.0-100.0); Monocytes # (auto) 1.6 uL; Monocytes % (auto) 9.1 % (0.0-12.0); Neutrophils # (auto) 14.6 uL; Neutrophils % (auto) 83.2 % (37.0-80.0); Platelet Count (auto) 193 10^3/uL (140-450); Red Cell Distribution Width 18.8 % (11.6-16.0); White Blood Cell 17.6 10^3/uL (4.4-10.8)
[2017-06-16] MEDS ORDERED: HALOPERIDOL LACTATE 5 MG/ML INJ VIAL ONE (23:08)
[2017-06-16] MEDS ORDERED: HALOPERIDOL LACTATE 5 MG/ML INJ VIAL IM PRN (23:15)
[2017-06-17] VITALS (87 sets, daily range): BP systolic 71–146; BP diastolic 30–81
[2017-06-17] MEDS: SODIUM CHLOR 0.9% PF (SALINE LOCK) 10ML VIAL IV SCH ×4 (00:11→21:35)
[2017-06-17] MEDS: PANTOPRAZOLE SODIUM 40 MG/10 ML VIAL IV SCH ×3 (00:12→21:34)
[2017-06-17] MEDS: CLINDAMYCIN 300MG IV 50 ML IV SCH ×4 (00:12→21:34)
[2017-06-17] MEDS: ATORVASTATIN 20 MG TAB PO SCH ×2 (00:13→21:35)
[2017-06-17] MEDS: ALBUTEROL SULF 2.5 MG/0.5ML(0.5%) NEB SOLN NEB SCH ×4 (00:17→19:48)
[2017-06-17] MEDS: IPRATROPIUM BROM 0.5 MG/2.5ML INH SOL NEB SCH ×4 (00:17→19:48)
[2017-06-17 00:36] LABS: Basophils # (auto) 0 uL; Basophils % (auto) 0.2 % (0.0-2.0); DEFINITIVE SEE PRINTOUT; Eosinophils # (auto) 0 uL; Eosinophils % (auto) 0.1 % (0.0-7.0); Lymphocytes # (auto) 1.2 uL; Lymphocytes % (auto) 7.5 % (10.0-50.0); Mean Corpuscular Hemoglobin 28.7 pg (28.0-32.0); Mean Corpuscular Hgb Conc. 33.5 g/dL (32.0-36.0); Mean Corpuscular Volume 85.7 fL (80.0-100.0); Mean Platelet Volume 8.2 fL (7.4-10.4); Monocytes # (auto) 1.3 uL; Monocytes % (auto) 7.8 % (0.0-12.0); Neutrophils # (auto) 13.7 uL; Neutrophils % (auto) 84.4 % (37.0-80.0); Platelet Count (auto) 179 10^3/uL (140-450); Red Cell Distribution Width 17.1 % (11.6-16.0); SUSPECT SEE PRINTOUT; White Blood Cell 16.2 10^3/uL (4.4-10.8)
[2017-06-17] MEDS: PHENYLEPHRINE INJ 20 MG in SODIUM CHL 0.9% 250 ML IV SCH ×3 (02:00→09:00)
[2017-06-17] MEDS ORDERED: PHENYLEPHRINE IV 250 ML IV ONE ×2 (04:27→08:41)
[2017-06-17] MEDS: BUMETANIDE (0.25 MG/ML) INJ 10ML IV SCH ×2 (06:30→17:43)
[2017-06-17] MEDS: BUDESONIDE (INHALATION) 0.5 MG/2 ML NEB NEB SCH ×2 (07:04→19:52)
[2017-06-17] MEDS: Boost Glucose Control 8 Ounces PO SCH ×3 (08:00→17:44)
[2017-06-17 09:12] LABS: Basophils # (auto) 0 uL; Basophils % (auto) 0.3 % (0.0-2.0); CONDITION Y; DEFINITIVE SEE PRINTOUT; Eosinophils # (auto) 0 uL; Eosinophils % (auto) 0.5 % (0.0-7.0); Hematocrit 23.7 % (41.0-53.0); Lymphocytes # (auto) 1.2 uL; Lymphocytes % (auto) 11.1 % (10.0-50.0); Mean Corpuscular Hemoglobin 29.6 pg (28.0-32.0); Mean Corpuscular Hgb Conc. 33.7 g/dL (32.0-36.0); Mean Corpuscular Volume 87.9 fL (80.0-100.0); Mean Platelet Volume 8.9 fL (7.4-10.4); Monocytes % (auto) 8.9 % (0.0-12.0); Neutrophils # (auto) 8.5 uL; Neutrophils % (auto) 79.2 % (37.0-80.0); Platelet Count (auto) 202 10^3/uL (140-450); Red Cell Distribution Width 18.2 % (11.6-16.0); White Blood Cell 10.8 10^3/uL (4.4-10.8)
[2017-06-17 09:29] LABS: BUN/Creatinine Ratio 34.1; Calcium 7.3 mg/dL (8.5-10.1)
[2017-06-17] MEDS: ASPirin 81 mg TAB PO SCH (10:00)
[2017-06-17] MEDS: CARVEDILOL 3.125 MG TAB PO SCH ×2 (10:00→21:36)
[2017-06-17] MEDS: POTASSIUM CHL 10 Meq TABLET PO SCH (10:00)
[2017-06-17] MEDS: CLOPIDOGREL BISULFATE 75 MG TAB PO SCH (10:00)
[2017-06-17] MEDS: DOCUSATE SOD 100 MG CAP PO SCH (10:00)
[2017-06-17] MEDS: cefTRIAXone 1GM/50ML D5W 50 ML IV SCH (10:09)
[2017-06-17] MEDS ORDERED: POTASSIUM CHL 20 Meq TABLET PO ONE (10:30)
[2017-06-17] MEDS ORDERED: ZOLPIDEM TARTRATE 5 MG TAB PO PRN (11:30)
[2017-06-17] MEDS ORDERED: LORazepam 0.5 MG TAB PO PRN (11:30)
[2017-06-17] MEDS: PHENYLEPHRINE INJ 40 MG in SODIUM CHL 0.9% 250 ML IV SCH ×3 (12:40→20:49)
[2017-06-17 13:01] LABS: Albumin 2.1 g/dL (3.4-5.0)
[2017-06-17] MEDS: TAMSULOSIN HYDROCHLORIDE 0.4 MG CAP PO SCH (17:44)
[2017-06-17 19:06] LABS: Basophils # (auto) 0 uL; Basophils % (auto) 0.2 % (0.0-2.0); CONDITION Y; Eosinophils # (auto) 0.1 uL; Eosinophils % (auto) 0.8 % (0.0-7.0); Hemoglobin 10.1 g/dL (13.5-17.5); Lymphocytes # (auto) 1.3 uL; Lymphocytes % (auto) 11.6 % (10.0-50.0); Mean Corpuscular Hemoglobin 29.7 pg (28.0-32.0); Mean Corpuscular Hgb Conc. 33.7 g/dL (32.0-36.0); Mean Corpuscular Volume 88.1 fL (80.0-100.0); Mean Platelet Volume 8.9 fL (7.4-10.4); Monocytes # (auto) 1.3 uL; Monocytes % (auto) 11.6 % (0.0-12.0); Neutrophils # (auto) 8.5 uL; Neutrophils % (auto) 75.8 % (37.0-80.0); Platelet Count (auto) 261 10^3/uL (140-450); Red Cell Distribution Width 18.2 % (11.6-16.0); White Blood Cell 11.3 10^3/uL (4.4-10.8)
[2017-06-18] VITALS (82 sets, daily range): BP systolic 86–131; BP diastolic 36–90
[2017-06-18] MEDS: ALBUTEROL SULF 2.5 MG/0.5ML(0.5%) NEB SOLN NEB SCH ×4 (00:11→18:16)
[2017-06-18] MEDS: IPRATROPIUM BROM 0.5 MG/2.5ML INH SOL NEB SCH ×4 (00:11→18:16)
[2017-06-18 04:45] LABS: Basophils # (auto) 0 uL; Basophils % (auto) 0.3 % (0.0-2.0); CONDITION Y; Eosinophils # (auto) 0.1 uL; Eosinophils % (auto) 0.6 % (0.0-7.0); Hematocrit 29.5 % (41.0-53.0); Hemoglobin 9.8 g/dL (13.5-17.5); Lymphocytes # (auto) 1.2 uL; Lymphocytes % (auto) 10.7 % (10.0-50.0); Mean Corpuscular Hemoglobin 29.5 pg (28.0-32.0); Mean Corpuscular Volume 89.3 fL (80.0-100.0); Mean Platelet Volume 8.6 fL (7.4-10.4); Monocytes # (auto) 1.3 uL; Monocytes % (auto) 11.9 % (0.0-12.0); Neutrophils # (auto) 8.7 uL; Neutrophils % (auto) 76.5 % (37.0-80.0); Platelet Count (auto) 281 10^3/uL (140-450); Red Cell Distribution Width 18.3 % (11.6-16.0); White Blood Cell 11.3 10^3/uL (4.4-10.8)
[2017-06-18] MEDS ORDERED: PHENYLEPHRINE IV 250 ML IV ONE ×3 (06:05→14:46)
[2017-06-18] MEDS: CLINDAMYCIN 300MG IV 50 ML IV SCH (06:18)
[2017-06-18] MEDS: SODIUM CHLOR 0.9% PF (SALINE LOCK) 10ML VIAL IV SCH ×3 (06:18→21:19)
[2017-06-18] MEDS: BUMETANIDE (0.25 MG/ML) INJ 10ML IV SCH ×2 (06:19→18:12)
[2017-06-18 06:23] LABS: BUN/Creatinine Ratio 32.5; Calcium 7.1 mg/dL (8.5-10.1); Magnesium 1.7 mg/dL (1.6-2.6); Potassium 3.3 mmol/L (3.5-5.1)
[2017-06-18] MEDS: BUDESONIDE (INHALATION) 0.5 MG/2 ML NEB NEB SCH ×2 (06:25→18:16)
[2017-06-18] MEDS: Boost Glucose Control 8 Ounces PO SCH ×2 (08:00→18:12)
[2017-06-18] MEDS: POTASSIUM CHL 10 Meq TABLET PO SCH (08:26)
[2017-06-18] MEDS: CARVEDILOL 3.125 MG TAB PO SCH ×2 (09:19→21:20)
[2017-06-18] MEDS: CLOPIDOGREL BISULFATE 75 MG TAB PO SCH (09:19)
[2017-06-18] MEDS: cefTRIAXone 1GM/50ML D5W 50 ML IV SCH (09:19)
[2017-06-18] MEDS: PANTOPRAZOLE SODIUM 40 MG/10 ML VIAL IV SCH ×2 (09:19→21:19)
[2017-06-18] MEDS: DOCUSATE SOD 100 MG CAP PO SCH (09:20)
[2017-06-18] MEDS: ASPirin 81 mg TAB PO SCH (09:20)
[2017-06-18] MEDS: PHENYLEPHRINE INJ 40 MG in SODIUM CHL 0.9% 250 ML IV SCH (11:11)
[2017-06-18] MEDS ORDERED: POTASSIUM CHL 20 Meq TABLET PO ONE (13:00)
[2017-06-18] MEDS ORDERED: MAGNESIUM SULFATE 1GM/100ML 100 ML IV ONE (13:00)
[2017-06-18] MEDS ORDERED: FUROSEMIDE 20 MG/2 ML VIAL ONE (13:35)
[2017-06-18] MEDS ORDERED: FUROSEMIDE 20 MG/2 ML VIAL IV ONE (13:45)
[2017-06-18] MEDS: HYDROcodone-ACET 5/325MG TAB PO PRN ×2 (15:10→21:26)
[2017-06-18] MEDS: TAMSULOSIN HYDROCHLORIDE 0.4 MG CAP PO SCH (18:12)
[2017-06-18 19:08] LABS: Basophils # (auto) 0 uL; Basophils % (auto) 0.3 % (0.0-2.0); CONDITION Y; Eosinophils # (auto) 0.1 uL; Eosinophils % (auto) 0.6 % (0.0-7.0); Hematocrit 29.4 % (41.0-53.0); Hemoglobin 9.8 g/dL (13.5-17.5); Lymphocytes # (auto) 0.7 uL; Lymphocytes % (auto) 6.8 % (10.0-50.0); Mean Corpuscular Hemoglobin 29.6 pg (28.0-32.0); Mean Corpuscular Hgb Conc. 33.2 g/dL (32.0-36.0); Mean Corpuscular Volume 89.2 fL (80.0-100.0); Mean Platelet Volume 8.4 fL (7.4-10.4); Monocytes # (auto) 1.1 uL; Monocytes % (auto) 10.9 % (0.0-12.0); Neutrophils # (auto) 8.4 uL; Neutrophils % (auto) 81.4 % (37.0-80.0); Platelet Count (auto) 293 10^3/uL (140-450); Red Cell Distribution Width 18.1 % (11.6-16.0); White Blood Cell 10.3 10^3/uL (4.4-10.8)
[2017-06-18] MEDS: ATORVASTATIN 20 MG TAB PO SCH (21:20)
[2017-06-19] VITALS (76 sets, daily range): BP systolic 82–138; BP diastolic 31–75
[2017-06-19] MEDS: PHENYLEPHRINE INJ 40 MG in SODIUM CHL 0.9% 250 ML IV SCH ×4 (01:04→22:18)
[2017-06-19] MEDS: ALBUTEROL SULF 2.5 MG/0.5ML(0.5%) NEB SOLN NEB SCH ×4 (01:19→18:47)
[2017-06-19] MEDS: IPRATROPIUM BROM 0.5 MG/2.5ML INH SOL NEB SCH ×4 (01:19→18:48)
[2017-06-19 04:17] LABS: Basophils # (auto) 0 uL; Basophils % (auto) 0.3 % (0.0-2.0); CONDITION Y; Eosinophils # (auto) 0.1 uL; Eosinophils % (auto) 0.8 % (0.0-7.0); Hemoglobin 9.3 g/dL (13.5-17.5); Lymphocytes % (auto) 10.5 % (10.0-50.0); Mean Corpuscular Hemoglobin 30.1 pg (28.0-32.0); Mean Corpuscular Hgb Conc. 33.3 g/dL (32.0-36.0); Mean Corpuscular Volume 90.7 fL (80.0-100.0); Mean Platelet Volume 8.6 fL (7.4-10.4); Monocytes # (auto) 0.9 uL; Monocytes % (auto) 9.5 % (0.0-12.0); Neutrophils # (auto) 7.3 uL; Neutrophils % (auto) 78.9 % (37.0-80.0); Platelet Count (auto) 289 10^3/uL (140-450); Red Cell Distribution Width 18.7 % (11.6-16.0); White Blood Cell 9.2 10^3/uL (4.4-10.8)
[2017-06-19 04:21] LABS: Potassium 3.7 mmol/L (3.5-5.1)
[2017-06-19 04:23] LABS: Magnesium 1.8 mg/dL (1.6-2.6)
[2017-06-19] MEDS: HYDROcodone-ACET 5/325MG TAB PO PRN ×2 (04:51→10:36)
[2017-06-19] MEDS: SODIUM CHLOR 0.9% PF (SALINE LOCK) 10ML VIAL IV SCH ×3 (06:13→22:17)
[2017-06-19] MEDS: BUMETANIDE (0.25 MG/ML) INJ 10ML IV SCH ×2 (06:14→18:39)
[2017-06-19] MEDS: BUDESONIDE (INHALATION) 0.5 MG/2 ML NEB NEB SCH ×2 (06:55→18:48)
[2017-06-19] MEDS: Boost Glucose Control 8 Ounces PO SCH ×2 (08:00→18:00)
[2017-06-19] MEDS: CLOPIDOGREL BISULFATE 75 MG TAB PO SCH (10:00)
[2017-06-19] MEDS: DOCUSATE SOD 100 MG CAP PO SCH (10:00)
[2017-06-19] MEDS: PANTOPRAZOLE SODIUM 40 MG/10 ML VIAL IV SCH ×2 (10:15→22:17)
[2017-06-19] MEDS: cefTRIAXone 1GM/50ML D5W 50 ML IV SCH (10:15)
[2017-06-19] MEDS: POTASSIUM CHL 10 Meq TABLET PO SCH (10:16)
[2017-06-19] MEDS ORDERED: PHENYLEPHRINE IV 250 ML IV ONE (10:34)
[2017-06-19] MEDS ORDERED: POTASSIUM CHL 20 Meq TABLET PO ONE (11:00)
[2017-06-19] MEDS ORDERED: MAGNESIUM SULFATE 1GM/100ML 100 ML IV ONE (11:00)
[2017-06-19] MEDS: TAMSULOSIN HYDROCHLORIDE 0.4 MG CAP PO SCH (18:39)
[2017-06-19] MEDS: CARVEDILOL 3.125 MG TAB PO SCH (22:00)
[2017-06-19] MEDS: ATORVASTATIN 20 MG TAB PO SCH (22:19)
[2017-06-19 22:25] LABS: Hematocrit 28.7 % (41.0-53.0); Hemoglobin 9.5 g/dL (13.5-17.5)
[2017-06-20] VITALS (18 sets, daily range): BP systolic 81–126; BP diastolic 38–74
[2017-06-20] MEDS: IPRATROPIUM BROM 0.5 MG/2.5ML INH SOL NEB SCH ×2 (00:13→06:10)
[2017-06-20] MEDS: ALBUTEROL SULF 2.5 MG/0.5ML(0.5%) NEB SOLN NEB SCH ×2 (00:13→06:10)
[2017-06-20 04:19] LABS: Potassium 3.6 mmol/L (3.5-5.1)
[2017-06-20 04:58] LABS: B-Type Natriuretic Peptide 4395.62 pg/mL (0-100)
[2017-06-20 05:22] LABS: Temperature: 23.5 C (20.0-25.0)
[2017-06-20] MEDS: BUMETANIDE (0.25 MG/ML) INJ 10ML IV SCH (06:00)
[2017-06-20] MEDS: SODIUM CHLOR 0.9% PF (SALINE LOCK) 10ML VIAL IV SCH (06:06)
[2017-06-20] MEDS: BUDESONIDE (INHALATION) 0.5 MG/2 ML NEB NEB SCH (06:10)
[2017-06-20] MEDS: PHENYLEPHRINE INJ 40 MG in SODIUM CHL 0.9% 250 ML IV SCH (06:42)
[2017-06-20] MEDS ORDERED: PHENYLEPHRINE IV 250 ML IV ONE (07:54)
[2017-06-20] MEDS: Boost Glucose Control 8 Ounces PO SCH (08:00)
[2017-06-20] MEDS: cefTRIAXone 1GM/50ML D5W 50 ML IV SCH (09:00)
[2017-06-20] MEDS: PANTOPRAZOLE SODIUM 40 MG/10 ML VIAL IV SCH (09:27)
[2017-06-20] MEDS: DOCUSATE SOD 100 MG CAP PO SCH (09:27)
[2017-06-20] MEDS: CARVEDILOL 3.125 MG TAB PO SCH (09:28)
[2017-06-20] MEDS: POTASSIUM CHL 10 Meq TABLET PO SCH (10:00)
[2017-06-20] MEDS: CLOPIDOGREL BISULFATE 75 MG TAB PO SCH (10:00)
[2017-06-20] MEDS ORDERED: NOREPINEPHRINE BITARTRATE 250 ML IV ONE (14:49)
== END 2017-06-20 09:45 | disposition left against medical advice (07) | DRG 871 ==
LOC: EDBD → ER 02:57 → EDUNIT# 02:57 → TELE 02:58 → ICU WEST 06-11 09:11
PROVIDERS: ADMIT Internal Medicine; ATTEND Internal Medicine
PROC: 30233N1 Transfusion of Nonautologous Red Blood Cells into Peripheral Vein, Percutaneous Approach (ICD-10-PCS; 2017-06-14)
PROC: 30233L1 Transfusion of Nonautologous Fresh Plasma into Peripheral Vein, Percutaneous Approach (ICD-10-PCS; 2017-06-15)
PROC: 30233K1 Transfusion of Nonautologous Frozen Plasma into Peripheral Vein, Percutaneous Approach (ICD-10-PCS; 2017-06-15)
PROC: 0DJD8ZZ Inspection of Lower Intestinal Tract, Via Natural or Artificial Opening Endoscopic (ICD-10-PCS; principal; 2017-06-16 14:00)
DX: A41.9 Sepsis, unspecified organism (principal); I21.4 Non-ST elevation (NSTEMI) myocardial infarction; J96.01 Acute respiratory failure with hypoxia; I50.43 Acute on chronic combined systolic (congestive) and diastolic (congestive) heart failure; K57.31 Diverticulosis of large intestine without perforation or abscess with bleeding; I13.0 Hypertensive heart and chronic kidney disease with heart failure and stage 1 through stage 4 chronic kidney disease, or unspecified chronic kidney disease; E44.0 Moderate protein-calorie malnutrition; L03.116 Cellulitis of left lower limb; L03.115 Cellulitis of right lower limb; D68.9 Coagulation defect, unspecified; N17.9 Acute kidney failure, unspecified; D62 Acute posthemorrhagic anemia; J98.11 Atelectasis; I25.5 Ischemic cardiomyopathy; N18.3 Chronic kidney disease, stage 3 (moderate); E78.5 Hyperlipidemia, unspecified; J44.9 Chronic obstructive pulmonary disease, unspecified; I73.9 Peripheral vascular disease, unspecified; I25.119 Atherosclerotic heart disease of native coronary artery with unspecified angina pectoris; E83.51 Hypocalcemia; I95.9 Hypotension, unspecified; D50.9 Iron deficiency anemia, unspecified; E87.6 Hypokalemia; E66.01 Morbid (severe) obesity due to excess calories; Z95.810 Presence of automatic (implantable) cardiac defibrillator; Z95.5 Presence of coronary angioplasty implant and graft; E78.00 Pure hypercholesterolemia, unspecified; F10.10 Alcohol abuse, uncomplicated; F15.10 Other stimulant abuse, uncomplicated; F17.210 Nicotine dependence, cigarettes, uncomplicated; Z91.19 Patient's noncompliance with other medical treatment and regimen; Z68.25 Body mass index [BMI] 25.0-25.9, adult; Z88.6 Allergy status to analgesic agent; Z80.9 Family history of malignant neoplasm, unspecified; Z82.49 Family history of ischemic heart disease and other diseases of the circulatory system
CPT/HCPCS: 36415; 36600; 51702; 71010; 76775; 78278; 80048; 80053; 80061; 80307; 81001; 82040; 82270; 82306; 82805; 82962; 83540; 83605; 83735; 83880; 83970; 84100; 84132; 84443; 84484; 84550; 85014; 85018; 85025; 85379; 85610; 85730; 86706; 86803; 86850; 86900; 86901; 86920; 87040; 87081; 87086; 87340; 93005; 93971; 94640; 94660; 96365; 96372; 96375; A4565; A9560; C9113; J0696; J2250; J2405; J3490; Q9967